=== PATIENT | female | born 1940 | race Caucasian/White ===

== ENCOUNTER 2017-10-23 11:00 | Outpatient (CLI) | payer MEDICARE | END 2017-10-23 11:01 | disposition home or self-care (01) | LOC: BICRAD 11:00 | PROVIDERS: ATTEND Podiatrist | DX: R60.0 Localized edema (principal); L53.9 Erythematous condition, unspecified; M85.871 Other specified disorders of bone density and structure, right ankle and foot ==

== ENCOUNTER 2018-04-19 13:35 | Outpatient (CLI) | payer MEDICARE | END 2018-04-19 13:36 | disposition home or self-care (01) | LOC: BICCT 13:35 | PROVIDERS: ATTEND Anesthesiology Pain Medicine | DX: M48.04 Spinal stenosis, thoracic region (principal); M48.062 Spinal stenosis, lumbar region with neurogenic claudication; M47.894 Other spondylosis, thoracic region; M43.9 Deforming dorsopathy, unspecified; M51.34 Other intervertebral disc degeneration, thoracic region; R91.1 Solitary pulmonary nodule; M47.896 Other spondylosis, lumbar region; M51.36 Other intervertebral disc degeneration, lumbar region; M41.9 Scoliosis, unspecified | CPT/HCPCS: 72110; 72128; 72131 ==

== ENCOUNTER 2018-10-16 09:12 | Outpatient (CLI) | payer MEDICARE, OTHER ==
--- NOTE | 2018-10-16 09:30 | RAD ---
TWO VIEWS CHEST: Comparison: 08-15-13 History: Dyspnea. FINDINGS: Two views of the chest shows an enlarged cardiomediastinal silhouette. Increased interstitial marking s are present. There is no evidence of consolidation, mass, or pleural effusion. Degenerative changes are seen in the spine. IMPRESSION: Cardiomegaly without evidence of acute cardiopulmonary disease. POS: [facility]
== END 2018-10-16 09:13 | disposition home or self-care (01) ==
LOC: RAD 09:12
PROVIDERS: ATTEND Internal Medicine Critical Care Medicine
DX: R06.00 Dyspnea, unspecified (principal); I51.7 Cardiomegaly
CPT/HCPCS: 71046

== ENCOUNTER 2019-04-15 12:46 | Outpatient (CLI) | payer MEDICARE ==
--- NOTE | 2019-04-15 13:22 | RAD ---
Exam: Right toes 3 views HISTORY: Second tarsal ulcer FINDINGS: Vascular calcifications. No fractures. There is a soft tissue ulcer along the dorsal aspect of the second digit. There is erosion involving the distal aspect of the proximal phalanx. IMPRESSION: Soft tissue ulcer involving the proximal dorsal aspect of the second digit. There is asso ciated underlying osteomyelitis involving the distal aspect of the proximal phalanx.
== END 2019-04-15 12:47 | disposition home or self-care (01) ==
LOC: BICRAD 12:46
PROVIDERS: ATTEND Podiatrist
DX: L97.519 Non-pressure chronic ulcer of other part of right foot with unspecified severity (principal); M86.9 Osteomyelitis, unspecified

== ENCOUNTER 2019-04-19 07:52 | Day surgery (SDC) | payer MEDICARE, OTHER ==
[2019-04-18 16:47] VITALS: BMI 26.6
[2019-04-19] MEDS ORDERED: ceFAZolin Sodium (SDC) 2 GM/100 ML BAG ONE (09:30)
[2019-04-19 09:41] LABS: #Basophils 0.1 thou/uL (0.0-0.2); #Eosinphils 0.3 thou/uL (0.0-0.7); #Lymphocytes 0.6 thou/uL (1.20-3.40); #Monocytes 1.2 thou/uL (0.11-0.59); #Neutrophils 7.6 thou/uL (1.40-6.50); %Basophils 0.6 % (0.0-1.0); %Eosinophils 2.6 % (0.0-10.0); %Lymphocytes 6.1 % (21.0-51.0); %Monocytes 12.2 % (0.0-10.0); %Neutrophils 78.4 % (42.0-75.0); Hemoglobin 13.4 g/dL (12.0-16.0); Mean Corpuscular HGB CONC 32.6 g/dL (32.0-36.0); Mean Corpuscular Hemoglobin 31.6 pg (27.0-31.0); Mean Platelet Volume 7.6 fL (7.4-10.4); Platelet Count 245 thou/uL (130-400); RBC Distribution Width 14.3 % (11.5-14.5); Red Blood Cell (RBC) Count 4.23 mill/uL (4.20-5.40); White Blood Cell (WBC) Count 9.6 thou/uL (4.8-10.8)
[2019-04-19 09:57] LABS: Anion Gap 20 mmol/L (10-20); BUN (Urea Nitrogen) 39 mg/dL (9.8-20.1); Calc. Creatinine Clearance 24 mL/min (70-130); Calcium 10.1 mg/dL (7.8-10.44); Carbon Dioxide 25 mmol/L (23-31); Chloride 102 mmol/L (98-107); Estimated GFR-MDRD 23; Glucose 104 mg/dL (83-110); Potassium 4.6 mmol/L (3.5-5.1); Sodium 142 mmol/L (136-145)
[2019-04-19] MEDS ORDERED: Fentanyl 100 MCG/2 ML VIAL ONE ×2 (10:15→10:49)
[2019-04-19] MEDS ORDERED: Lidocaine 2% PF 5 ML VIAL ONE (10:56)
[2019-04-19] MEDS ORDERED: Bupivacaine PF 0.5% 30 ML VIAL ONE (10:56)
[2019-04-19] MEDS ORDERED: Bacitracin Zinc Ointment 30 gm TUBE ONE (10:56)
[2019-04-19] MEDS ORDERED: Neomycin-Polymyxin 1 ML AMP ONE (10:57)
--- NOTE | 2019-04-19 16:30 | EKG ---
Test Reason : PREOP Blood Pressure : / mmHG Vent. Rate : 110 BPM Atrial Rate : 340 BPM P-R Int : 000 ms QRS Dur : 094 ms QT Int : 354 ms P-R-T Axes : 000 047 -77 degrees QTc Int : 479 ms Atrial fibrillation with rapid ventricular response Abnormal ECG No previous ECGs available Confirmed by DR. Florentino ALCANTAR MD ([id number]) on 04/19/2019 4:30:12 PM Referred By: TERRA Confirmed By:DR. Floretnino ALCANTAR MD
[2019-04-19] MEDS ORDERED: Bupivacaine HCl 0.5%/Epinephrine 1:200,000/PF 30 ml Vial ONE (16:57)
[2019-04-19] MEDS ORDERED: Esmolol 100 MG/10 ML VIAL ONE (17:11)
[2019-04-19] MEDS ORDERED: PROPOFOL 200 MG/20 ML VIAL ONE (17:11)
[2019-04-19] MEDS ORDERED: Ondansetron PF 4 MG/2 ML Vial ONE (17:11)
--- NOTE | 2019-04-22 13:07 | OP ---
DATE OF PROCEDURE: 04/19/2019 ASSISTANTS: None. FACILITY: [facility], [place]. PREOPERATIVE DIAGNOSIS: Osteomyelitis, right second toe. POSTOPERATIVE DIAGNOSIS: Osteomyelitis, right second toe. PROCEDURE PERFORMED: Amputation of right second toe. FLUIDS: None. ANESTHESIA: TIVA with local. ESTIMATED BLOOD LOSS: Less than 3 mL. DESCRIPTION OF PROCEDURE: The patient was brought to the OR and placed in the supine position. The right foot was prepped in the usual sterile manner. A tourniquet was not used. An Esmarch was not used. The patient's vascular flow to the right lower extremity was normal. Once the sedation had taken effect, approximately 10 mL of 2% plain lidocaine and 0.5% Marcaine were injected in an H-block proximal to the right second metatarsal head. A marking pen was then used to delineate a fishmouth shaped incision approximately at mid diaphysis of the proximal phalanx of the right second toe. A #10 blade was used for the initial incision. The incision was carried cleanly to bone; however, the extensors and flexors were identified, retracted, and transected. A sagittal saw was used to transect the proximal phalanx, mid shaft. The second toe was sent to Pathology for evaluation. The wound was then copiously lavaged with a solution. The edges of the wound were then reapproximated with 3-0 Prolene in a simple interrupted manner. The wound was dressed with fluffs, Kerlix, and an Earle wrap. The patient was given written postoperative instructions and a followup at this office in 1 week. The patient tolerated the procedure well. She left the OR with all vital signs stable and intact. Her infectious disease followups and antibiotic treatment will continue. Job ID: [id number]
== END 2019-04-19 12:44 | disposition home or self-care (01) ==
LOC: SDC 07:52
PROVIDERS: ATTEND Podiatrist
PROC: 0Y6R0Z1 Detachment at Right 2nd Toe, High, Open Approach (ICD-10-PCS; principal; 2019-04-19)
DX: M86.171 Other acute osteomyelitis, right ankle and foot (principal); L97.519 Non-pressure chronic ulcer of other part of right foot with unspecified severity; I13.0 Hypertensive heart and chronic kidney disease with heart failure and stage 1 through stage 4 chronic kidney disease, or unspecified chronic kidney disease; N18.4 Chronic kidney disease, stage 4 (severe); I50.9 Heart failure, unspecified; D63.1 Anemia in chronic kidney disease; M10.9 Gout, unspecified; J44.9 Chronic obstructive pulmonary disease, unspecified; G62.9 Polyneuropathy, unspecified; M19.90 Unspecified osteoarthritis, unspecified site; Z79.2 Long term (current) use of antibiotics; Z79.82 Long term (current) use of aspirin; Z79.899 Other long term (current) drug therapy; Z88.1 Allergy status to other antibiotic agents; Z88.8 Allergy status to other drugs, medicaments and biological substances
CPT/HCPCS: 80048; 85025; 93005; 93010; J0670; J0690; J2001; J2405; J2704; J3010; J3370; S0020

== ENCOUNTER 2019-09-25 08:22 | Outpatient (CLI) | payer MEDICARE, OTHER ==
--- NOTE | 2019-10-04 10:04 | CT ---
CT Abdomen Pelvis W Con: 10/04/2019 12:00 AM CLINICAL INFORMATION: Dysphagia and weight loss. Irritable bowel syndrome. COMPARISON: None. TECHNIQUE: Multiple contiguous axial images were obtained and a CT of the abdomen and pelvis with IV contrast. Oral contrast was administered. Coronal and sagittal reformats were performed. FINDINGS: Lower Chest: Calcified granulomas in the right lung base. Abdomen: Liver: Scattered calcified granulomas Bile Ducts: Normal caliber. Gallbladder: No calcified gallstones. Normal caliber wall. Pancreas: within normal limits. Spleen: Calcified granuloma Adrenals: within normal limits. Kidneys: Nonspecific 1.0 cm hypodensity in the left kidney. The left kidney is small and atrophic. Pelvis: Reproductive Organs: No pelvic masses. Ureters: within normal limits. Bladder: within normal limits. Peritoneum: No ascites or free air, no fluid collection. Bowel: Normal caliber. Mesentery and Retroperitoneum: No enlarged mesenteric or retroperitoneal lymph nodes. Vessels: Atherosclerotic calcifications. Abdominal Wall: within normal limits. Bones: Degenerative changes in the spine. IMPRESSION: No evidence of acute intraabdominal or pelvic abnormality.
[2019-10-04] MEDS ORDERED: Iopamidol-370 76% 500 ML 1 ML ONE (10:38)
== END 2019-09-25 08:23 | disposition home or self-care (01) ==
LOC: BICCT 08:22
PROVIDERS: ATTEND Internal Medicine Gastroenterology
DX: K58.0 Irritable bowel syndrome with diarrhea (principal); R13.10 Dysphagia, unspecified; R63.4 Abnormal weight loss; K31.1 Adult hypertrophic pyloric stenosis
CPT/HCPCS: 74177; 82565

== ENCOUNTER 2019-11-11 10:27 | Outpatient (CLI) | payer MEDICARE, OTHER ==
--- NOTE | 2019-11-11 10:52 | RAD ---
EXAM: XR Foot Rt 3 View STANDARD PROVIDED CLINICAL HISTORY: Ulcer FINDINGS: Age-indeterminate displaced fracture involving the great toe distal phalanx. Somewhat indistinct appe arance to the fracture margins may reflect a subacute process. Alignment appears anatomic. Joint spaces appear preserved. Postoperative absence of most of second digit. Vascular calcifications. IMPRESSION: Age-indeterminate displaced fracture involving great toe distal phalanx.
== END 2019-11-11 10:28 | disposition home or self-care (01) ==
LOC: BICRAD 10:27
PROVIDERS: ATTEND Podiatrist
DX: L97.519 Non-pressure chronic ulcer of other part of right foot with unspecified severity (principal)

== ENCOUNTER 2020-01-06 10:16 | Outpatient (CLI) | payer MEDICARE, OTHER ==
--- NOTE | 2020-01-06 12:51 | RAD ---
RIGHT FOOT RADIOGRAPHS 3 VIEWS: DATE: 01/06/2020. PROVIDED CLINICAL HISTORY: Pressure ulcer. FINDINGS: Comparison 11/11/2019. There is no evidence for an acute fracture or other acute osseous abnormality. Deformity of the great toe and presumed postoperative change involving the 2nd toe redemonstrated, s table. Extensive regional vascular calcifications. Alignment appears unchanged. Joint spaces appea r preserved. IMPRESSION: No radiographic evidence for an acute osseous abnormality. POS: [facility]
== END 2020-01-06 10:17 | disposition home or self-care (01) ==
LOC: BICRAD 10:16
PROVIDERS: ATTEND Podiatrist
DX: L89.890 Pressure ulcer of other site, unstageable (principal)

== ENCOUNTER 2020-02-25 10:52 | Inpatient (IN) | payer MEDICARE, OTHER ==
[2020-02-25] MEDS ORDERED: Azithromycin 500 MG VIAL ONE (11:09)
[2020-02-25] MEDS ORDERED: Magnesium 2 GM/50 ML BAG (IN WATER) ONE (11:09)
[2020-02-25] MEDS ORDERED: Sodium Chloride 0.9% 100 ML ONE (11:09)
[2020-02-25] MEDS ORDERED: Dexamethasone 4 mg/ml Vial ONE (11:09)
[2020-02-25] MEDS ORDERED: cefTRIAXone\\ROCEPHIN 2 GM VIAL ONE (11:09)
[2020-02-25 11:15] LABS: #Lymphocytes 0.5 thou/uL (1.20-3.40); #Monocytes 0.6 thou/uL (0.11-0.59); #Neutrophils 9.1 thou/uL (1.40-6.50); %Basophils 0.5 % (0.0-1.0); %Eosinophils 0.2 % (0.0-10.0); %Lymphocytes 5.1 % (21.0-51.0); %Monocytes 5.9 % (0.0-10.0); %Neutrophils 88.4 % (42.0-75.0); Mean Corpuscular HGB CONC 30.8 g/dL (32.0-36.0); Mean Corpuscular Hemoglobin 28.1 pg (27.0-31.0); Mean Corpuscular Volume 91.3 fL (78.0-98.0); Mean Platelet Volume 9.3 fL (7.4-10.4); Platelet Count 183 thou/uL (130-400); RBC Distribution Width 17.5 % (11.5-14.5); Red Blood Cell (RBC) Count 4.28 mill/uL (4.20-5.40); White Blood Cell (WBC) Count 10.3 thou/uL (4.8-10.8)
[2020-02-25] MEDS ORDERED: Digoxin 0.5 MG/2 ML AMP ONE (11:26)
--- NOTE | 2020-02-25 11:35 | RAD ---
EXAM: Single view of the chest HISTORY: Covid positive with shortness of breath COMPARISON: 04/08/2015 FINDINGS: Single view of the chest shows an enlarged but stable cardiomediastinal silhouette. Diffus e increased interstitial markings are likely chronic. Atherosclerotic calcifications are seen in the aorta. No obvious superimposed infiltrates are appreciated. There is no evidence of consolidatio n, mass, or pleural effusion. Degenerative changes are seen in the spine. IMPRESSION: Chronic interstitial lung disease without obvious acute infiltrate. Evaluation is limited secondary to the chronic lung disease.
[2020-02-25 11:47] LABS: ALT (SGPT) 29 U/L (8-55); AST (SGOT) 49 U/L (5-34); Albumin 3.2 g/dL (3.4-4.8); Alkaline Phosphatase 120 U/L (40-110); Anion Gap 19 mmol/L (10-20); BUN (Urea Nitrogen) 69 mg/dL (9.8-20.1); Bilirubin, Total 0.6 mg/dL (0.2-1.2); CK (CPK) 11 U/L (29-168); Calc. Creatinine Clearance 0 mL/min (70-130); Calcium 8.9 mg/dL (7.8-10.44); Carbon Dioxide 26 mmol/L (23-31); Chloride 101 mmol/L (98-107); Estimated GFR-MDRD 22; Globulin 3.1 g/dL (2.4-3.5); Glucose 150 mg/dL (83-110); Lipase 21 U/L (8-78); Potassium 4.6 mmol/L (3.5-5.1); Protein, Total 6.3 g/dL (6.0-8.3); Sodium 141 mmol/L (136-145)
[2020-02-25 11:59] LABS: CKMB 0.5 ng/mL (0-6.6)
[2020-02-25 12:04] LABS: Actual Bicarbonate (HCO3a) 25.1 mEq/L (22-28); Analyzer IN Cardio ER; Base Excess (BEa) 1.9 mEq/L (-2.0 to +3.0); CO2 Tension 34.7 mmHg (35.0-45.0); Calcium, Ionized (arterial) 1.07 mmol/L (1.12-1.30); Carboxyhemoglobin (COHb) 0.2 gm% (0.0-3.0); Hemoglobin (Hb) 11.3 g/dL (12.0-16.0); O2 Tension (PaO2), arterial 64.1 mmHg (> 60.0); Potassium - ABG Lab 3.97 mmol/L (3.70-5.30); pH, Arterial 7.48 (7.35-7.45)
[2020-02-25] MEDS ORDERED: Norepinephrine 8 MG/0.9% NS 250 ML ONE (12:05)
[2020-02-25 12:07] LABS: ALV-art Gradient 249.025 (0-20); Puncture Site RBRACH
[2020-02-25] MEDS ORDERED: Enoxaparin Sodium 60 MG/0.6 ML SYRINGE ONE (12:58)
[2020-02-25] MEDS ORDERED: Aspirin Chewable 81 MG TAB ONE (12:58)
[2020-02-25 13:31] LABS: Bilirubin Negative (Negative); Blood, Urine Negative (Negative); Clarity Clear (Clear); Glucose, Urine (Dipstick) Normal (Negative); Leukocyte Negative Leu/uL (Negative); Nitrite Negative (Negative); Protein, Urine (Dipstick) Negative (Neg-Trace); Urobilinogen Normal mg/dL (Less than 2)
[2020-02-25] MEDS ORDERED: Bisacodyl 5 MG TAB PO PRN (14:04)
[2020-02-25] MEDS ORDERED: Senokot S 8.6-50 MG TAB PO PRN (14:04)
[2020-02-25 14:38] LABS: Lactic Acid 1.4 mmol/L (0.5-2.2)
[2020-02-25 14:41] LABS: Troponin I 0.127 ng/mL (< 0.028)
--- NOTE | 2020-02-25 18:02 | HP ---
CHIEF COMPLAINT: Cough, shortness of breath, and COVID positive. HISTORY OF PRESENT ILLNESS: An 79-year-old female admitted for potential CHF exacerbation. However, she was ruled in positive for COVID at primary care physician's office. Initially, she had a low blood pressure with systolic of 75 and heart rate of AFib with RVR with pulse of 140. Due to her low blood pressure, magnesium and digoxin given. Pulse seems to be improved. She was started on Levophed for persistent low blood pressure. Her lactate also was high at 4.6, pCO2 was 35, and she was actually saturating 70% in the room and high-flow oxygen seems to help. Her D-dimer is elevated at 1.27. Also, she had abnormal troponin. During my exam, the patient is not able to give me much information. She is hard of hearing. She says she has some wound in the sacral area, want to be looked at. She is also coughing quite a bit during my exam. REVIEW OF SYSTEMS: Complete review of systems not obtainable due to her clinical condition of continuous cough and COVID being positive. ALLERGIES: SHE HAS NO KNOWN DRUG ALLERGIES. PAST MEDICAL HISTORY: 1. Hypothyroidism. 2. Hypertension. SOCIAL HISTORY: Not obtained. FAMILY HISTORY: Noncontributory. PHYSICAL EXAMINATION: VITAL SIGNS: She is afebrile. Monitor shows systolic blood pressure improved to 110. CARDIAC: She is tachycardic currently. Irregular rhythm. LUNGS: With posterior auscultation, she has moderate aeration in both lung zones. Crackles and rales in the lower lung bases. ABDOMEN: Soft, nontender, and nondistended. Bowel sounds are positive. EXTREMITIES: With 1+ pitting edema all the way from ankles to the legs. I did not appreciate any rash over the torso or the extremities. LABORATORY DATA: Her CBC in the normal range. BMP: Creatinine of 2.14. AST 49. Creatine kinase 11, troponin 0.153, and BNP 2521. D-dimer 1.27. UA is benign. Chest x-ray shows chronic interstitial lung disease without obvious acute infiltrate. Evaluation limited secondary to chronic lung disease. IMPRESSION AND PLAN: This is an 79-year-old female, presenting with the following. 1. Sepsis secondary to COVID pneumonia, sepsis with severe hypotension, requiring Levophed. 2. Congestive heart failure exacerbation. 3. Chronic obstructive pulmonary disease exacerbation. 4. Hypoxia, acute respiratory failure, requiring high-flow oxygen. 5. Abnormal troponin, type 2 metabolic mismatch/demand ischemia due to sepsis secondary to COVID pneumonia. 6. Acute kidney injury, probably reflective of sepsis and acute distress. 7. Probable pressure ulcer in the sacral area. The patient will be admitted in the unit. We will wean off her vasopressors as her blood pressure improves. We will hold the diuresis until she is hemodynamically more stable. 8. Atrial fibrillation with rapid ventricular response. Had to be caution with giving her any rate-controlling agent as she is still hypotensive. The patient also needs to be anticoagulated given her atrial fibrillation. She does not appear to be on any anticoagulants at home. We need to address that. 9. Regarding COVID, we will start her on low-dose Decadron, and since her creatinine 2.14 with a GFR of 22, I will put her on heparin b.i.d. and stop Lovenox at this time. 10. We will get serial LFT, CRP, as well as D-dimer level to monitor the progression of her COV ID. ID consult with Dr. Bedolla. Gentle IV fluid with caution with underlying history of congestive heart failure. For COPD exacerbation, she would be on a high-flow oxygen along with DuoNeb breathing treatments as needed. 11. Routine nursing wound care. If necessary, will consult wound care team. 12. Full code. Job ID: [id number] [facility]
[2020-02-25] MEDS ORDERED: Ondansetron PF 4 MG/2 ML Vial IVP PRN (18:51)
[2020-02-25] MEDS ORDERED: Ondansetron ODT 4 MG TAB SL PRN (18:51)
[2020-02-25] MEDS ORDERED: Sodium Chloride 0.9% 1,000 ML IV SCH (18:51)
[2020-02-25] MEDS ORDERED: Norepinephrine 8 MG/0.9% NS 250 ML IVPB SCH (18:51)
[2020-02-25] MEDS ORDERED: Digoxin 0.5 MG/2 ML AMP SLOW IVP SCH (19:00)
[2020-02-25 19:22] LABS: Troponin I 0.133 ng/mL (< 0.028)
[2020-02-25] MEDS: Heparin 5,000 UNITS/ML VIAL SC SCH (21:01)
[2020-02-26 03:06] LABS: #Lymphocytes 0.3 thou/uL (1.20-3.40); #Monocytes 0.5 thou/uL (0.11-0.59); #Neutrophils 6.3 thou/uL (1.40-6.50); %Lymphocytes 4.7 % (21.0-51.0); %Monocytes 6.6 % (0.0-10.0); %Neutrophils 88.7 % (42.0-75.0); Hemoglobin 11.4 g/dL (12.0-16.0); Mean Corpuscular HGB CONC 32.2 g/dL (32.0-36.0); Mean Corpuscular Hemoglobin 29.2 pg (27.0-31.0); Mean Corpuscular Volume 90.6 fL (78.0-98.0); Mean Platelet Volume 9.1 fL (7.4-10.4); Platelet Count 129 thou/uL (130-400); RBC Distribution Width 17.2 % (11.5-14.5); White Blood Cell (WBC) Count 7.1 thou/uL (4.8-10.8)
[2020-02-26 03:30] LABS: ALT (SGPT) 31 U/L (8-55); AST (SGOT) 55 U/L (5-34); Albumin 2.6 g/dL (3.4-4.8); Alkaline Phosphatase 105 U/L (40-110); Bilirubin, Direct 0.4 mg/dL (0.1-0.3); Bilirubin, Total 0.6 mg/dL (0.2-1.2); Protein, Total 5.4 g/dL (6.0-8.3)
[2020-02-26 03:31] LABS: ALT (SGPT) 30 U/L (8-55); AST (SGOT) 54 U/L (5-34); Albumin 2.6 g/dL (3.4-4.8); Alkaline Phosphatase 104 U/L (40-110); Anion Gap 15 mmol/L (10-20); BUN (Urea Nitrogen) 65 mg/dL (9.8-20.1); Bilirubin, Total 0.5 mg/dL (0.2-1.2); Calc. Creatinine Clearance 22 mL/min (70-130); Calcium 8.2 mg/dL (7.8-10.44); Carbon Dioxide 27 mmol/L (23-31); Chloride 107 mmol/L (98-107); Estimated GFR-MDRD 28; Globulin 2.7 g/dL (2.4-3.5); Glucose 163 mg/dL (83-110); Potassium 3.9 mmol/L (3.5-5.1); Protein, Total 5.3 g/dL (6.0-8.3); Sodium 145 mmol/L (136-145)
[2020-02-26] MEDS: Levothyroxine Sodium 75 MCG TAB PO SCH (05:36)
[2020-02-26] MEDS: Aspirin 81 mg Enteric Coated Tablet PO SCH (07:56)
[2020-02-26] MEDS: Dexamethasone 4 mg/ml Vial SLOW IVP SCH (07:57)
[2020-02-26] MEDS: Heparin 5,000 UNITS/ML VIAL SC SCH ×2 (07:57→21:09)
[2020-02-26] MEDS: Calcitriol 0.25 MCG CAP PO SCH (07:57)
[2020-02-26] MEDS: Ergocalciferol 1.25 MG(50,000 UNITS) CAP PO SCH (07:58)
[2020-02-26] MEDS ORDERED: Non-Formulary Item 1 EACH (Umeclidinium Brm/Vilanterol Tr [Anoro Ellipta] 1 INH) IH SCH (09:00)
--- NOTE | 2020-02-26 09:55 | CON ---
DATE OF CONSULTATION: HISTORY OF PRESENT ILLNESS: Kareen Machuca is an 79-year-old female, who was brought into the hospital with hypotension, hypoxemia, coronavirus positive on 02/19. She sees Dr. Valdez, long list of medication. She otherwise denies any chills or sweats. She was hypotensive for a brief period of time. PAST SURGICAL HISTORY: Amputation of the toe. PAST MEDICAL HISTORY: COPD, hypertension, CHF apparently. HOME MEDICATIONS: Include: 1. Anoro. 2. Ranitidine. 3. Synthroid 75. 4. Lasix. 5. Cipro. 6. Tylenol. 7. Coreg 25 b.i.d. 8. She is presently getting Decadron 6, Synthroid. ALLERGIES: NONE. REVIEW OF SYSTEMS: 10 points negative. PHYSICAL EXAMINATION: VITAL SIGNS: She is on high-flow, sats 90, pulse 106, blood pressure . GENERAL: Awake, alert, responsive. CHEST: No wheezing. No crackles. CARDIAC: Normal S1, S2. No gallops. ABDOMEN: Soft. LABORATORY DATA: White count 7000, H and H 11 and 35, platelet count is normal. Creatinine is 1.7, BUN is 65. Serial troponins elevated. BNP was elevated at 2521. IMPRESSION: Congestive heart failure, chronic obstructive pulmonary disease, azotemia, coronavirus positive. PLAN: Add doxycycline. Input from Cardiology. We will notify Dr. Valdez. Continue neb treatments, supportive care. Consultation note, 70 minutes, 50% direct patient care. Job ID: [id number]
[2020-02-26] MEDS: Doxycycline 100 MG CAP PO SCH ×2 (10:43→21:09)
--- NOTE | 2020-02-26 15:41 | PDOC.HOSPP ---
- Subjective Encounter Date: 02/26/20 Encounter Time: 12:40 Subjective: pt seen, stable asandting 90% w.. Fio2 of 40. Hr controlled, off levophed which started y'day in the ER, HR controlled, not on drips or vasopressors. all markers were COVID were high - crp, ferritin, AST and Cr, and Cr trending down. - Objective Vital Signs & Weight: Vital Signs (12 hours) Temp Pulse Ox 02/26/20 15:00 98.4 F 02/26/20 11:00 98.2 F 02/26/20 10:54 94 L 02/26/20 08:37 90 L 02/26/20 08:00 96 02/26/20 07:00 98.1 F Weight Weight 124 lb 12.506 oz Most Recent Monitor Data Heart Rate from ECG 113 NIBP 127/80 NIBP BP-Mean 95 Respiration from ECG 26 SpO2 88 I&O: 02/25/20 02/26/20 02/27/20 06:59 06:59 06:59 Intake Total 759.8 1140 Output Total 740 660 Balance 19.8 480 Result Diagrams: 02/26/20 02:50 02/26/20 02:50 Hospitalist ROS - Medication Medications: Active Medications Generic Name Dose Route Start Last Admin Trade Name Freq PRN Reason Stop Dose Admin Aspirin 81 mg 02/26/20 09:00 02/26/20 07:56 Ecotrin PO 81 mg DAILY EDGARDO Administration Calcitriol 0.25 mcg 02/26/20 09:00 02/26/20 07:57 Rocaltrol PO 0.25 mcg DAILY EDGARDO Administration Dexamethasone 6 mg 02/26/20 09:00 02/26/20 07:57 Decadron SLOW IVP 6 mg DAILY EDGARDO Administration Doxycycline Hyclate 100 mg 02/26/20 09:00 02/26/20 10:43 Vibramycin PO 03/04/20 09:01 100 mg BID EDGARDO Administration Ergocalciferol 1.25 mg 02/26/20 09:00 02/26/20 07:58 Drisdol PO 1.25 mg DAILY EDGARDO Administration Heparin Sodium (Porcine) 5,000 units 02/25/20 21:00 02/26/20 07:57 Heparin SC 5,000 units BID EDGARDO Administration Levothyroxine Sodium 75 mcg 02/26/20 06:00 02/26/20 05:36 Synthroid PO 75 mcg 0600 EDGARDO Administration Sodium Chloride 10 ml 02/25/20 21:00 02/26/20 07:58 Flush - Normal Saline IVF 10 ml Q12HR EDGARDO Administration - Exam General Appearance: ill appearing Eye: PERRL Neck: supple Heart: irregular Respiratory: rales Gastrointestinal: normal bowel sounds Neurological: no focal deficits Psychiatric: somnolent, lethargic Hosp A/P - Plan COVID sepsis COVID pneumonia--decadron Hypox res failure requriing high flow O2 Hyptoension - resolved --bl luiza neg so far -- not on abx Afib - currently not on rate control agent Hr controlled, off levophed which started y'day in the ER, HR controlled, not on drips or vasopressors. all markers were COVID were high - crp, ferritin, AST and Cr, and Cr trending down. TALISHA --Cr improving Full code.
[2020-02-26] MEDS: Albuterol 200 PUFF (6.7GM INHALER) INH SCH (19:24)
--- NOTE | 2020-02-26 21:38 | CON ---
DATE OF CONSULTATION: 02/26/2020 REASON FOR CONSULTATION: COVID pneumonia. HISTORY OF PRESENT ILLNESS: An 79-year-old with history of COPD, CHF, and CKD, who acquired COVID infection from one of her daughters. She was diagnosed about 10 days ago. Symptoms started about 11 days ago. She was managed at home initially, but now she deteriorated, became more hypoxic, was admitted. BP on arrival 81/55, pulse 148, respirations 32, and O2 saturation 75. She was placed on a nonrebreather, oxygen supplementation. She was in severe distress on arrival. There was wheezing in her lungs sounds. The abdomen examination and neuro examination were not remarkable. Other findings included a white cell count 10.3, hemoglobin 12, and platelets 183 with 88% neutrophils. D-dimer is 1.27. A pH of 7.48, pCO2 of 34, and pO2 of 64. Creatinine 2.14, lactic acid 4.6, and albumin 3.2. Currently, Ms. Machuca is in the ICU with high-flow nasal cannula O2 supplementation. She is feeling much more comfortable. She is able to speak in full sentences. Denies any headaches. The dyspnea has improved. No chest pain. No abdominal pain or diarrhea. Voiding with an indwelling for Alexander catheter. There is a peripheral IV access. PAST MEDICAL HISTORY: COPD, CHF, CKD, hyperlipidemia, hypertension, and amputation of the right second toe. She has a chronic ulcer at the lateral aspect of the right fifth toe. SOCIAL HISTORY: Former smoker. Lives in a home with daughter. ALLERGIES: NONE. CURRENT MEDICATIONS: 1. Proventil. 2. Ecotrin. 3. Dulcolax. 4. Rocaltrol. 5. Decadron. 6. Vibramycin. 7. Drisdol. 8. Heparin. 9. Synthroid. FAMILY HISTORY: Noncontributory except for a daughter with the COVID. PHYSICAL EXAMINATION: VITAL SIGNS: She has been afebrile since admission. BP 120/60, heart rate 112, respirations 28, and the latest O2 saturation was 94. GENERAL: Appears in no distress. SKIN: Shows a stage 2 presacral ulcer, also much erythema, it is just red tissue at the base. The right foot lateral fifth MPJ skin has a small ulcerated area, which appears superficial. No lymphadenopathy. HEENT: Ocular movements conjugate. Oral cavity somewhat dry. NECK: Supple. No jugular vein distention. LUNGS: With fairly clear breath sounds. HEART: S1 and S2. Regular rate. No S3 or S4. ABDOMEN: Soft, not distended or tender. No ascites. No bladder distention. EXTREMITIES: No joint inflammatory activity. She moves extremities equally. No edema. NEUROLOGIC: Awake, alert, and oriented. Follows commands. LABORATORY DATA: Followup labs; white cell count 7.1, hemoglobin 11.4, platelets 129, and 88% neutrophils. D-dimer 1.49. Chest x-ray with interstitial lung disease. No obvious infiltrate. ASSESSMENT: Chronic obstructive pulmonary disease, interstitial lung disease, COVID infection, and worsening hypoxemia. DISCUSSION: The patient has been started on Decadron and heparin adjusted for renal function and unclear what the component of her deterioration is from her underlying lung disease, but certainly it does not help having this viral infection on top of that. She is at her eleventh day of illness and still has quite a few days left from this. Hopefully, she will not deteriorate and not require intubation. Job ID: [id number]
[2020-02-26] MEDS: Acetaminophen 325 MG TAB PO PRN (23:58)
[2020-02-27] MEDS ORDERED: Digoxin 0.125 MG TAB PO SCH (01:00)
[2020-02-27] MEDS: Levothyroxine Sodium 75 MCG TAB PO SCH (05:46)
[2020-02-27] MEDS: Albuterol 200 PUFF (6.7GM INHALER) INH SCH ×4 (07:00→19:40)
[2020-02-27] MEDS: Doxycycline 100 MG CAP PO SCH ×2 (09:05→19:27)
[2020-02-27] MEDS: Dexamethasone 4 mg/ml Vial SLOW IVP SCH (09:06)
[2020-02-27] MEDS: Aspirin 81 mg Enteric Coated Tablet PO SCH (09:06)
[2020-02-27] MEDS: Heparin 5,000 UNITS/ML VIAL SC SCH ×2 (09:06→19:27)
[2020-02-27] MEDS: Calcitriol 0.25 MCG CAP PO SCH (09:06)
[2020-02-27] MEDS: Ergocalciferol 1.25 MG(50,000 UNITS) CAP PO SCH (09:06)
[2020-02-27] MEDS: Diphenoxylate HCl/Atropine Tablet PO PRN ×3 (10:59→21:33)
[2020-02-27] MEDS: traMADol HCl 50 MG TAB PO PRN (10:59)
--- NOTE | 2020-02-27 14:00 | PRG ---
DATE OF SERVICE: 02/27/2020 SUBJECTIVE: Ms. Machuca has no change. She is still talking a mile a minute. She is on her cellphone all day yesterday. OBJECTIVE: VITAL SIGNS: Heart rate in the 90s, blood pressure 133/84, and respiratory rates in the teens. LUNGS: Unchanged. HEART: Unchanged. ABDOMEN: Unchanged. LABORATORY DATA: White count 7.1, hemoglobin 11.4, and platelets 129. Sodium 145, potassium 3.9, chloride 107, bicarb 27, BUN 65, and creatinine 1.77, which is down from 2.14. IMPRESSION: 1. COVID pneumonia. 2. Intravascular volume depletion. 3. Hypoalbuminemia. 4. Stage III decubitus on presentation. 5. Mild elevation of liver enzymes secondary COVID. She is about a week into this, so really it will not benefit in theory from convalescent plasma or any other medications. Supportive care, oxygen therapy, and trying to get her out of bed is the best option. The nurses tell me that she has a decubitus, it looks like she has been lying on her sacrum for quite some time. I believe she probably tends to spend most of her time in bed when she is not in the hospital. We will continue supportive care. She is probably stable to move out of the critical care unit if the bed becomes needed in the ICU. Job ID: [id number] [facility]
--- NOTE | 2020-02-27 17:09 | PDOC.HOSPP ---
- Subjective Encounter Date: 02/27/20 Encounter Time: 11:20 Subjective: pt's care d/w RN. she is stable to be transferred to obs unit [COVID +ve] - Objective Vital Signs & Weight: Vital Signs (12 hours) Temp Pulse Ox 02/27/20 15:42 92 L 02/27/20 15:00 98.5 F 02/27/20 12:00 98.7 F 02/27/20 08:00 98.8 F 93 L Weight Admit Weight 125 lb Weight 125 lb Most Recent Monitor Data Heart Rate from ECG 112 NIBP 125/76 NIBP BP-Mean 92 Respiration from ECG 20 SpO2 87 I&O: 02/26/20 02/27/20 02/28/20 06:59 06:59 06:59 Intake Total 759.8 3446 840 Output Total 740 2200 510 Balance 19.8 1246 330 Result Diagrams: 02/26/20 02:50 02/26/20 02:50 Hospitalist ROS - Medication Medications: Active Medications Generic Name Dose Route Start Last Admin Trade Name Freq PRN Reason Stop Dose Admin Acetaminophen 650 mg 02/25/20 14:04 02/26/20 23:58 Tylenol PO 650 mg Q4H PRN Administration Headache/Fever/Mild Pain (1-3) Albuterol Sulfate 2 puff 02/26/20 19:00 02/27/20 14:19 Proventil Hfa INH 2 puff [id number] EDGARDO Administration Aspirin 81 mg 02/26/20 09:00 02/27/20 09:06 Ecotrin PO 81 mg DAILY EDGARDO Administration Calcitriol 0.25 mcg 02/26/20 09:00 02/27/20 09:06 Rocaltrol PO 0.25 mcg DAILY EDGARDO Administration Dexamethasone 6 mg 02/26/20 09:00 02/27/20 09:06 Decadron SLOW IVP 6 mg DAILY EDGARDO Administration Diphenoxylate HCl/Atropine 1 tab 02/27/20 10:43 02/27/20 10:59 Lomotil PO 1 tab QIDPRN PRN Administration Diarrhea/Loose Stools Doxycycline Hyclate 100 mg 02/26/20 09:00 02/27/20 09:05 Vibramycin PO 03/04/20 09:01 100 mg BID EDGARDO Administration Ergocalciferol 1.25 mg 02/26/20 09:00 02/27/20 09:06 Drisdol PO 1.25 mg DAILY EDGARDO Administration Heparin Sodium (Porcine) 5,000 units 02/25/20 21:00 02/27/20 09:06 Heparin SC 5,000 units BID EDGARDO Administration Levothyroxine Sodium 75 mcg 02/26/20 06:00 02/27/20 05:46 Synthroid PO 75 mcg 0600 EDGARDO Administration Sodium Chloride 10 ml 02/25/20 21:00 02/27/20 09:06 Flush - Normal Saline IVF 10 ml Q12HR EDGARDO Administration Tramadol HCl 50 mg 02/27/20 10:42 02/27/20 10:59 Ultram PO 50 mg Q6H PRN Administration PAIN 4-6 - Exam General Appearance: NAD, awake alert, ill appearing Eye: PERRL ENT: normocephalic atraumatic Psychiatric: A&O x 3 Hosp A/P - Plan COVID sepsis COVID pneumonia--decadron Hypox res failure requriing high flow O2 Hyptoension - resolved --bl luiza neg so far -- not on abx Afib - currently not on rate control agent Hr controlled, off levophed which started y'day in the ER, HR controlled, not on drips or vasopressors. all markers were COVID were high - crp, ferritin, AST and Cr, and Cr trending down. TALISHA --Cr improving stage 3 pressure ulcer -POA - routine nursing care Full code.
[2020-02-27] MEDS: Mometasone 200 MCG/Formoterol 5 MCG 120 PUFF INHALER INH SCH (19:40)
[2020-02-28] MEDS: Levothyroxine Sodium 75 MCG TAB PO SCH (06:16)
[2020-02-28] MEDS: Mometasone 200 MCG/Formoterol 5 MCG 120 PUFF INHALER INH SCH ×2 (06:17→19:25)
[2020-02-28] MEDS: Albuterol 200 PUFF (6.7GM INHALER) INH SCH ×4 (06:17→19:11)
[2020-02-28] MEDS: Aspirin 81 mg Enteric Coated Tablet PO SCH (08:41)
[2020-02-28] MEDS: Ergocalciferol 1.25 MG(50,000 UNITS) CAP PO SCH (08:42)
[2020-02-28] MEDS: Doxycycline 100 MG CAP PO SCH ×2 (08:42→19:24)
[2020-02-28] MEDS: Calcitriol 0.25 MCG CAP PO SCH (08:42)
[2020-02-28] MEDS: Heparin 5,000 UNITS/ML VIAL SC SCH ×2 (08:42→19:24)
[2020-02-28] MEDS: methylPREDNISolone Sod Succ/PF 125 MG/2 ML VIAL IVP SCH (08:44)
[2020-02-28] MEDS ORDERED: methylPREDNISolone Sod Succ 40 MG VIAL IVP SCH ×2 (09:00)
--- NOTE | 2020-02-28 12:47 | PDOC.HOSPP ---
- Subjective Encounter Date: 02/28/20 Encounter Time: 11:20 Subjective: transferred from the unit, doing well on the floor. still on high flow O2 -- 87 % at fio2 of 54. feels ok, d-dimer high, -- no repeat markers done. will get them. - Objective Vital Signs & Weight: Vital Signs (12 hours) Temp Pulse Resp BP BP Pulse Ox 02/28/20 12:16 99.9 F H 110 H 22 H 119/72 87 L 02/28/20 09:00 99 F 99 20 141/84 H 94 L 02/28/20 03:52 98.5 F 89 15 147/75 H 92 L Weight Admit Weight 125 lb Weight 126 lb 14.4 oz Most Recent Monitor Data Heart Rate from ECG 103 NIBP 130/74 NIBP BP-Mean 92 Respiration from ECG 11 SpO2 91 I&O: 02/27/20 02/28/20 02/29/20 06:59 06:59 06:59 Intake Total 3446 1160 360 Output Total 2200 1535 Balance 1246 -375 360 Result Diagrams: 02/26/20 02:50 02/26/20 02:50 Hospitalist ROS - Medication Medications: Active Medications Generic Name Dose Route Start Last Admin Trade Name Freq PRN Reason Stop Dose Admin Acetaminophen 650 mg 02/25/20 14:04 02/26/20 23:58 Tylenol PO 650 mg Q4H PRN Administration Headache/Fever/Mild Pain (1-3) Albuterol Sulfate 2 puff 02/26/20 19:00 02/28/20 06:17 Proventil Hfa INH 2 puff [id number] EDGARDO Administration Aspirin 81 mg 02/26/20 09:00 02/28/20 08:41 Ecotrin PO 81 mg DAILY EDGARDO Administration Calcitriol 0.25 mcg 02/26/20 09:00 02/28/20 08:42 Rocaltrol PO 0.25 mcg DAILY EDGARDO Administration Diphenoxylate HCl/Atropine 1 tab 02/27/20 10:43 02/27/20 21:33 Lomotil PO 1 tab QIDPRN PRN Administration Diarrhea/Loose Stools Doxycycline Hyclate 100 mg 02/26/20 09:00 02/28/20 08:42 Vibramycin PO 03/04/20 09:01 100 mg BID EDGARDO Administration Ergocalciferol 1.25 mg 02/26/20 09:00 02/28/20 08:42 Drisdol PO 1.25 mg DAILY EDGARDO Administration Heparin Sodium (Porcine) 5,000 units 02/25/20 21:00 02/28/20 08:42 Heparin SC 5,000 units BID EDGARDO Administration Levothyroxine Sodium 75 mcg 02/26/20 06:00 02/28/20 06:16 Synthroid PO 75 mcg 0600 EDGARDO Administration Methylprednisolone Sodium Succinate 60 mg 02/28/20 09:00 02/28/20 08:44 Solu-Medrol IVP 60 mg DAILY EDGARDO Administration Mometasone Furoate/Formoterol Fumar 2 puff 02/27/20 18:30 02/28/20 06:17 Dulera 200 Mcg/5 Mcg Inhaler INH 2 puff BID-RT EDGARDO Administration Sodium Chloride 10 ml 02/25/20 21:00 02/28/20 08:44 Flush - Normal Saline IVF 10 ml Q12HR EDGARDO Administration Tramadol HCl 50 mg 02/27/20 10:42 02/27/20 10:59 Ultram PO 50 mg Q6H PRN Administration PAIN 4-6 - Exam General Appearance: NAD, awake alert Eye: PERRL ENT: normocephalic atraumatic Neurological: no focal deficits Psychiatric: normal affect, normal behavior, A&O x 3 Hosp A/P - Plan COVID sepsis COVID pneumonia--decadron Hypox res failure requriing high flow O2 Hyptoension - resolved --bl luiza neg so far -- not on abx Afib - currently not on rate control agent Hr controlled, off levophed which started y'day in the ER, HR controlled, not on drips or vasopressors. all markers were COVID were high - crp, ferritin, AST and Cr, and Cr trending down. TALISHA --Cr improving stage 3 pressure ulcer -POA - routine nursing care Still on high flow O2 -- 87% at fio2 of 54. feels ok, d-dimer high, -- no repeat markers done. will get them. switch from IV methylprednis--- to decadron Po Full code.
[2020-02-28] MEDS ORDERED: Metoprolol Tartrate 5 MG/5 ML VIAL IVP PRN (12:52)
[2020-02-28] MEDS: Diphenoxylate HCl/Atropine Tablet PO PRN (14:34)
[2020-02-28] MEDS: Metoprolol Tartrate 25 MG TAB PO SCH (19:28)
[2020-02-29 05:52] LABS: ALT (SGPT) 37 U/L (8-55); AST (SGOT) 31 U/L (5-34); Albumin 2.6 g/dL (3.4-4.8); Alkaline Phosphatase 173 U/L (40-110); Bilirubin, Direct 0.5 mg/dL (0.1-0.3); Bilirubin, Total 0.6 mg/dL (0.2-1.2); CRP (Inflammatory) 11.37 mg/dL (= or < 0.5); Protein, Total 5.4 g/dL (6.0-8.3)
[2020-02-29] MEDS: Albuterol 200 PUFF (6.7GM INHALER) INH SCH ×4 (05:59→22:19)
[2020-02-29] MEDS: Levothyroxine Sodium 75 MCG TAB PO SCH (05:59)
[2020-02-29] MEDS: Mometasone 200 MCG/Formoterol 5 MCG 120 PUFF INHALER INH SCH ×2 (05:59→18:11)
[2020-02-29] MEDS: methylPREDNISolone Sod Succ/PF 125 MG/2 ML VIAL IVP SCH (07:52)
[2020-02-29] MEDS: Metoprolol Tartrate 25 MG TAB PO SCH (07:53)
[2020-02-29] MEDS: Doxycycline 100 MG CAP PO SCH ×2 (07:53→21:50)
[2020-02-29] MEDS: Ergocalciferol 1.25 MG(50,000 UNITS) CAP PO SCH (07:53)
[2020-02-29] MEDS: Aspirin 81 mg Enteric Coated Tablet PO SCH (07:53)
[2020-02-29] MEDS: Heparin 5,000 UNITS/ML VIAL SC SCH ×2 (07:54→21:51)
[2020-02-29] MEDS: Calcitriol 0.25 MCG CAP PO SCH (07:54)
[2020-02-29] MEDS: traMADol HCl 50 MG TAB PO PRN (08:10)
[2020-02-29 09:24] LABS: #Lymphocytes 0.7 thou/uL (1.20-3.40); #Monocytes 0.9 thou/uL (0.11-0.59); #Neutrophils 13.1 thou/uL (1.40-6.50); %Basophils 0.3 % (0.0-1.0); %Eosinophils 0.1 % (0.0-10.0); %Lymphocytes 4.6 % (21.0-51.0); %Monocytes 6.1 % (0.0-10.0); %Neutrophils 88.9 % (42.0-75.0); Hemoglobin 13.3 g/dL (12.0-16.0); Mean Corpuscular HGB CONC 30.9 g/dL (32.0-36.0); Mean Corpuscular Hemoglobin 28.3 pg (27.0-31.0); Mean Corpuscular Volume 91.3 fL (78.0-98.0); Mean Platelet Volume 10.1 fL (7.4-10.4); Platelet Count 139 thou/uL (130-400); Red Blood Cell (RBC) Count 4.71 mill/uL (4.20-5.40); White Blood Cell (WBC) Count 14.8 thou/uL (4.8-10.8)
[2020-02-29 09:37] LABS: Anion Gap 13 mmol/L (10-20); BUN (Urea Nitrogen) 32 mg/dL (9.8-20.1); Calc. Creatinine Clearance 49 mL/min (70-130); Carbon Dioxide 25 mmol/L (23-31); Chloride 104 mmol/L (98-107); Estimated GFR-MDRD 67; Glucose 110 mg/dL (83-110); Sodium 138 mmol/L (136-145)
--- NOTE | 2020-02-29 13:16 | PDOC.HOSPP ---
- Subjective Encounter Date: 02/29/20 Encounter Time: 13:14 Subjective: Ms. Machuca was seen today in follow-up of COVID pneumonia. She says she feels ok. She denies feeling short of breath. - Objective Vital Signs & Weight: Vital Signs (12 hours) Temp Pulse Resp BP Pulse Ox 02/29/20 08:10 90 L 02/29/20 08:05 98.6 F 96 18 145/79 H 90 L 02/29/20 03:52 98.0 F 97 15 135/88 95 Weight Admit Weight 125 lb Weight 127 lb Most Recent Monitor Data Heart Rate from ECG 103 NIBP 130/74 NIBP BP-Mean 92 Respiration from ECG 11 SpO2 91 I&O: 02/28/20 02/29/20 03/01/20 06:59 06:59 06:59 Intake Total 1160 1400 Output Total 1535 500 Balance -375 900 Result Diagrams: 02/29/20 09:16 02/29/20 09:16 Hospitalist ROS - Medication Medications: Active Medications Generic Name Dose Route Start Last Admin Trade Name Freq PRN Reason Stop Dose Admin Acetaminophen 650 mg 02/25/20 14:04 02/26/20 23:58 Tylenol PO 650 mg Q4H PRN Administration Headache/Fever/Mild Pain (1-3) Albuterol Sulfate 2 puff 02/26/20 19:00 02/29/20 11:10 Proventil Hfa INH 2 puff [id number] EDGARDO Administration Aspirin 81 mg 02/26/20 09:00 02/29/20 07:53 Ecotrin PO 81 mg DAILY EDGARDO Administration Calcitriol 0.25 mcg 02/26/20 09:00 02/29/20 07:54 Rocaltrol PO 0.25 mcg DAILY EDGARDO Administration Diphenoxylate HCl/Atropine 1 tab 02/27/20 10:43 02/28/20 14:34 Lomotil PO 1 tab QIDPRN PRN Administration Diarrhea/Loose Stools Doxycycline Hyclate 100 mg 02/26/20 09:00 02/29/20 07:53 Vibramycin PO 03/04/20 09:01 100 mg BID EDGARDO Administration Ergocalciferol 1.25 mg 02/26/20 09:00 02/29/20 07:53 Drisdol PO 1.25 mg DAILY EDGARDO Administration Heparin Sodium (Porcine) 5,000 units 02/25/20 21:00 02/29/20 07:54 Heparin SC 5,000 units BID EDGARDO Administration Levothyroxine Sodium 75 mcg 02/26/20 06:00 02/29/20 05:59 Synthroid PO 75 mcg 0600 EDGARDO Administration Methylprednisolone Sodium Succinate 60 mg 02/28/20 09:00 02/29/20 07:52 Solu-Medrol IVP 60 mg DAILY EDGARDO Administration Metoprolol Tartrate 5 mg 02/28/20 12:52 02/28/20 13:35 Lopressor IVP 03/02/20 12:53 5 mg Q4H PRN Administration Blood Pressure Metoprolol Tartrate 6.25 mg 02/28/20 21:00 02/29/20 07:53 Lopressor PO 6.25 mg BID EDGARDO Administration Mometasone Furoate/Formoterol Fumar 2 puff 02/27/20 18:30 02/29/20 05:59 Dulera 200 Mcg/5 Mcg Inhaler INH 2 puff BID-RT EDGARDO Administration Sodium Chloride 10 ml 02/25/20 21:00 02/29/20 07:55 Flush - Normal Saline IVF 10 ml Q12HR EDGARDO Administration Tramadol HCl 50 mg 02/27/20 10:42 02/29/20 08:10 Ultram PO 50 mg Q6H PRN Administration PAIN 4-6 - Exam Eye: PERRL, anicteric sclera Heart: no murmur, no gallops, no rubs, normal peripheral pulses, irregular (+ mildly tachycardic) Gastrointestinal: soft, non-tender, non-distended, normal bowel sounds, no palpable masses, no hepatomegaly Extremities: no cyanosis, no edema Hosp A/P (1) Acute respiratory failure with hypoxemia Code(s): J96.01 - ACUTE RESPIRATORY FAILURE WITH HYPOXIA Status: Acute (2) Pneumonia due to COVID-19 virus Code(s): U07.1 - COVID-19; J12.89 - OTHER VIRAL PNEUMONIA Status: Acute (3) Atrial fibrillation Code(s): I48.91 - UNSPECIFIED ATRIAL FIBRILLATION Status: Acute (4) Hypertension Code(s): I10 - ESSENTIAL (PRIMARY) HYPERTENSION Status: Acute (5) Hypothyroidism Code(s): E03.9 - HYPOTHYROIDISM, UNSPECIFIED Status: Acute - Plan * COVID pneumonia- continue symptomatic and supportive management * COPD with Chronic respiratory failure- she says her oxygen saturation usually run about 70-80's without supplemental oxygen. Shesays she has gotten use to this, and does not feel short of breath right now * Continue high flow oxygen * AFIB- heart rate is beginning to creep up- will place her back on Carvediolol , and Cardizem ( her home medications) * Hypothyroidism- due to the AFIB- will check her thyroid function tests in the AM
[2020-02-29] MEDS: Acetaminophen 325 MG TAB PO PRN (21:05)
[2020-02-29] MEDS: Carvedilol 25 MG TAB PO SCH (21:50)
[2020-03-01 04:53] LABS: #Lymphocytes 0.3 thou/uL (1.20-3.40); #Monocytes 0.9 thou/uL (0.11-0.59); #Neutrophils 11.4 thou/uL (1.40-6.50); %Basophils 0.2 % (0.0-1.0); %Eosinophils 0.1 % (0.0-10.0); %Lymphocytes 2.2 % (21.0-51.0); %Neutrophils 90.5 % (42.0-75.0); Hemoglobin 11.9 g/dL (12.0-16.0); Mean Corpuscular Hemoglobin 26.7 pg (27.0-31.0); Mean Platelet Volume 10.1 fL (7.4-10.4); Platelet Count 141 thou/uL (130-400); RBC Distribution Width 16.8 % (11.5-14.5); Red Blood Cell (RBC) Count 4.44 mill/uL (4.20-5.40); White Blood Cell (WBC) Count 12.6 thou/uL (4.8-10.8)
[2020-03-01 05:09] LABS: Anion Gap 12 mmol/L (10-20); BUN (Urea Nitrogen) 44 mg/dL (9.8-20.1); CRP (Inflammatory) 11.06 mg/dL (= or < 0.5); Calc. Creatinine Clearance 41 mL/min (70-130); Calcium 8.6 mg/dL (7.8-10.44); Carbon Dioxide 24 mmol/L (23-31); Chloride 104 mmol/L (98-107); Estimated GFR-MDRD 54; Glucose 142 mg/dL (83-110); Potassium 3.9 mmol/L (3.5-5.1); Sodium 136 mmol/L (136-145)
[2020-03-01 05:27] LABS: Free T4 (Free Thyroxine) 0.88 ng/dL (0.70-1.48); Thyroid Stimulating Hormone 1.136 uIU/mL (0.35-4.94)
[2020-03-01] MEDS: Acetaminophen 325 MG TAB PO PRN (05:50)
[2020-03-01] MEDS: Levothyroxine Sodium 75 MCG TAB PO SCH (05:50)
[2020-03-01] MEDS: Mometasone 200 MCG/Formoterol 5 MCG 120 PUFF INHALER INH SCH ×2 (05:50→18:14)
[2020-03-01] MEDS: methylPREDNISolone Sod Succ/PF 125 MG/2 ML VIAL IVP SCH (07:40)
[2020-03-01] MEDS: Ascorbic Acid 500 mg Chewable Tablet PO SCH (07:41)
[2020-03-01] MEDS: Doxycycline 100 MG CAP PO SCH ×2 (07:41→19:58)
[2020-03-01] MEDS: Ergocalciferol 1.25 MG(50,000 UNITS) CAP PO SCH (07:41)
[2020-03-01] MEDS: Calcitriol 0.25 MCG CAP PO SCH (07:41)
[2020-03-01] MEDS: Folic Acid/Vit B Comp W-C PO SCH (07:42)
[2020-03-01] MEDS: Heparin 5,000 UNITS/ML VIAL SC SCH ×2 (07:42→19:58)
[2020-03-01] MEDS: Aspirin 81 mg Enteric Coated Tablet PO SCH (07:42)
[2020-03-01] MEDS: Albuterol 200 PUFF (6.7GM INHALER) INH SCH ×4 (07:42→19:58)
[2020-03-01] MEDS: Carvedilol 25 MG TAB PO SCH ×2 (08:09→19:58)
--- NOTE | 2020-03-01 15:07 | PDOC.HOSPP ---
- Subjective Encounter Date: 03/01/20 Encounter Time: 15:05 Subjective: Ms. Machuca was seen today in follow-up of COVID pneumonia. She says she feels fine. She would like to be discharged in time to see her grandson's graduation. - Objective Vital Signs & Weight: Vital Signs (12 hours) Temp Pulse Resp BP BP Pulse Ox 03/01/20 12:00 98.2 F 73 20 100/57 L 88 L 03/01/20 08:05 93 L 03/01/20 07:50 97.8 F 75 18 109/48 L 93 L 03/01/20 06:10 97.9 F 78 22 H 104/56 L 91 L Weight Admit Weight 125 lb Weight 130 lb 14.4 oz Most Recent Monitor Data Heart Rate from ECG 103 NIBP 130/74 NIBP BP-Mean 92 Respiration from ECG 11 SpO2 91 I&O: 02/29/20 03/01/20 03/02/20 06:59 06:59 06:59 Intake Total 1400 1260 480 Output Total 500 650 Balance 900 610 480 Result Diagrams: 03/01/20 04:29 03/01/20 04:29 Hospitalist ROS - Medication Medications: Active Medications Generic Name Dose Route Start Last Admin Trade Name Freq PRN Reason Stop Dose Admin Acetaminophen 650 mg 02/25/20 14:04 03/01/20 05:50 Tylenol PO 650 mg Q4H PRN Administration Headache/Fever/Mild Pain (1-3) Albuterol Sulfate 2 puff 02/26/20 19:00 03/01/20 11:51 Proventil Hfa INH 2 puff [id number] EDGARDO Administration Ascorbic Acid 1,000 mg 03/01/20 09:00 03/01/20 07:41 Vitamin C PO 1,000 mg DAILY EDGARDO Administration Aspirin 81 mg 02/26/20 09:00 03/01/20 07:42 Ecotrin PO 81 mg DAILY EDGARDO Administration Calcitriol 0.25 mcg 02/26/20 09:00 03/01/20 07:41 Rocaltrol PO 0.25 mcg DAILY EDGARDO Administration Carvedilol 25 mg 02/29/20 21:00 03/01/20 08:09 Coreg PO Not Given BID EDGARDO Diltiazem HCl 240 mg 02/29/20 18:00 02/29/20 18:11 Cardizem Cd PO 240 mg 1800 EDGARDO Administration Diphenoxylate HCl/Atropine 1 tab 02/27/20 10:43 02/28/20 14:34 Lomotil PO 1 tab QIDPRN PRN Administration Diarrhea/Loose Stools Doxycycline Hyclate 100 mg 02/26/20 09:00 03/01/20 07:41 Vibramycin PO 03/04/20 09:01 100 mg BID EDGARDO Administration Ergocalciferol 1.25 mg 02/26/20 09:00 03/01/20 07:41 Drisdol PO 1.25 mg DAILY EDGARDO Administration Heparin Sodium (Porcine) 5,000 units 02/25/20 21:00 03/01/20 07:42 Heparin SC 5,000 units BID EDGARDO Administration Levothyroxine Sodium 75 mcg 02/26/20 06:00 03/01/20 05:50 Synthroid PO 75 mcg 0600 EDGARDO Administration Methylprednisolone Sodium Succinate 60 mg 02/28/20 09:00 03/01/20 07:40 Solu-Medrol IVP 60 mg DAILY EDGARDO Administration Metoprolol Tartrate 5 mg 02/28/20 12:52 02/28/20 13:35 Lopressor IVP 03/02/20 12:53 5 mg Q4H PRN Administration Blood Pressure Mometasone Furoate/Formoterol Fumar 2 puff 02/27/20 18:30 03/01/20 05:50 Dulera 200 Mcg/5 Mcg Inhaler INH 2 puff BID-RT EDGARDO Administration Pantoprazole Sodium 40 mg 02/29/20 21:00 03/01/20 07:42 Protonix PO 40 mg BID EDGARDO Administration Sodium Chloride 10 ml 02/25/20 21:00 03/01/20 07:42 Flush - Normal Saline IVF 10 ml Q12HR EDGARDO Administration Tramadol HCl 50 mg 02/27/20 10:42 02/29/20 08:10 Ultram PO 50 mg Q6H PRN Administration PAIN 4-6 Vitamin B Complex/Vit C/Folic Acid 1 tab 03/01/20 09:00 03/01/20 07:42 Nephro-John Tablet PO 1 tab DAILY EDGARDO Administration - Exam Eye: PERRL, anicteric sclera Heart: no murmur, no gallops, no rubs, normal peripheral pulses, irregular ( heart rate has improved) Respiratory: CTAB, no wheezes, no rales, no ronchi, normal chest expansion Gastrointestinal: soft, non-tender, non-distended, normal bowel sounds, no palpable masses Extremities: no cyanosis, no edema Hosp A/P (1) Acute respiratory failure with hypoxemia Code(s): J96.01 - ACUTE RESPIRATORY FAILURE WITH HYPOXIA Status: Acute (2) Pneumonia due to COVID-19 virus Code(s): U07.1 - COVID-19; J12.89 - OTHER VIRAL PNEUMONIA Status: Acute (3) Atrial fibrillation Code(s): I48.91 - UNSPECIFIED ATRIAL FIBRILLATION Status: Acute (4) Hypertension Code(s): I10 - ESSENTIAL (PRIMARY) HYPERTENSION Status: Acute (5) Hypothyroidism Code(s): E03.9 - HYPOTHYROIDISM, UNSPECIFIED Status: Acute - Plan * COVID pneumonia- continue symptomatic and supportive management * COPD with Chronic respiratory failure- clinically stable. She says she has high oxygen requirements at home * Continue high flow oxygen and wean as tolerated * AFIB- heart rate is beginning to creep up- her heart rate is better * Hypothyroidism- due to the AFIB- Thyroid function tests are normal * Inflammatory markers are trending down * Hopefully home in a few days
[2020-03-02] MEDS: Levothyroxine Sodium 75 MCG TAB PO SCH (06:21)
[2020-03-02] MEDS: Mometasone 200 MCG/Formoterol 5 MCG 120 PUFF INHALER INH SCH ×2 (06:22→18:41)
[2020-03-02] MEDS: Albuterol 200 PUFF (6.7GM INHALER) INH SCH ×4 (06:22→18:41)
[2020-03-02] MEDS: Ascorbic Acid 500 mg Chewable Tablet PO SCH (08:52)
[2020-03-02] MEDS: Folic Acid/Vit B Comp W-C PO SCH (08:53)
[2020-03-02] MEDS: Ergocalciferol 1.25 MG(50,000 UNITS) CAP PO SCH (08:53)
[2020-03-02] MEDS: Doxycycline 100 MG CAP PO SCH ×2 (08:53→19:58)
[2020-03-02] MEDS: Calcitriol 0.25 MCG CAP PO SCH (08:53)
[2020-03-02] MEDS: Aspirin 81 mg Enteric Coated Tablet PO SCH (08:53)
[2020-03-02] MEDS: Carvedilol 25 MG TAB PO SCH ×2 (08:53→19:58)
[2020-03-02] MEDS: Heparin 5,000 UNITS/ML VIAL SC SCH ×2 (08:54→19:58)
[2020-03-02] MEDS: methylPREDNISolone Sod Succ/PF 125 MG/2 ML VIAL IVP SCH ×2 (08:54→19:58)
[2020-03-02 10:10] LABS: Actual Bicarbonate (HCO3a) 25.2 mEq/L (22-28); Base Excess (BEa) 2.5 mEq/L (-2.0 to +3.0); CO2 Tension 32.6 mmHg (35.0-45.0); Calcium, Ionized (arterial) 1.27 mmol/L (1.12-1.30); Carboxyhemoglobin (COHb) 1.2 gm% (0.0-3.0); Hemoglobin (Hb) 12.3 g/dL (12.0-16.0); pH, Arterial 7.51 (7.35-7.45)
[2020-03-02 10:12] LABS: O2 Tension (PaO2), arterial 43.8 mmHg (> 60.0)
[2020-03-02 10:13] LABS: Puncture Site RRA
[2020-03-02 10:15] LABS: #Lymphocytes 0.4 thou/uL (1.20-3.40); #Monocytes 0.8 thou/uL (0.11-0.59); #Neutrophils 14.8 thou/uL (1.40-6.50); %Eosinophils 0.2 % (0.0-10.0); %Lymphocytes 2.5 % (21.0-51.0); %Monocytes 4.9 % (0.0-10.0); %Neutrophils 92.5 % (42.0-75.0); Hemoglobin 12.3 g/dL (12.0-16.0); Mean Corpuscular Hemoglobin 28.3 pg (27.0-31.0); Mean Corpuscular Volume 88.4 fL (78.0-98.0); Mean Platelet Volume 10.4 fL (7.4-10.4); Platelet Count 157 thou/uL (130-400); RBC Distribution Width 16.9 % (11.5-14.5); Red Blood Cell (RBC) Count 4.34 mill/uL (4.20-5.40)
[2020-03-02 10:36] LABS: Anion Gap 13 mmol/L (10-20); BUN (Urea Nitrogen) 49 mg/dL (9.8-20.1); Calc. Creatinine Clearance 44 mL/min (70-130); Carbon Dioxide 24 mmol/L (23-31); Chloride 104 mmol/L (98-107); Estimated GFR-MDRD 57; Glucose 124 mg/dL (83-110); Potassium 3.8 mmol/L (3.5-5.1); Sodium 137 mmol/L (136-145)
--- NOTE | 2020-03-02 11:54 | RAD ---
EXAM: Single view of the chest HISTORY: Covid pneumonia with hypoxia COMPARISON: 02/25/2020 FINDINGS: Single view of the chest shows an enlarged but stable cardiomediastinal silhouette. Diffus e increased interstitial markings are present. Opacity is seen in both lung bases which may represent atelectasis or infiltrates. The bones are unremarkable. IMPRESSION: Stable exam
--- NOTE | 2020-03-02 15:21 | PDOC.HOSPP ---
- Subjective Encounter Date: 03/02/20 Encounter Time: 15:20 Subjective: Ms. Machuca was seen today in follow-up of respiratory failure due to COVID infection. She says she feels about the same today as yesterday. She was a bit drowsy earlier, but this has improved. She is currently working with PT today - Objective Vital Signs & Weight: Vital Signs (12 hours) Temp Pulse Resp BP Pulse Ox 03/02/20 12:00 97.6 F 112 H 22 H 116/68 88 L 03/02/20 10:57 96 03/02/20 10:07 84 L 03/02/20 09:21 98.1 F 129 H 22 H 131/85 88 L 03/02/20 04:44 90 L 03/02/20 04:35 90 L 03/02/20 04:05 95 115/55 L 83 L 03/02/20 03:55 132 H 138/74 70 L 03/02/20 03:50 98.6 F 103 H 24 H 97/67 65 L Weight Admit Weight 125 lb Weight 130 lb 3.2 oz Most Recent Monitor Data Heart Rate from ECG 103 NIBP 130/74 NIBP BP-Mean 92 Respiration from ECG 11 SpO2 91 I&O: 03/01/20 03/02/20 03/03/20 06:59 06:59 06:59 Intake Total 1260 960 720 Output Total 650 825 625 Balance 610 135 95 Result Diagrams: 03/02/20 09:55 03/02/20 09:55 Hospitalist ROS - Medication Medications: Active Medications Generic Name Dose Route Start Last Admin Trade Name Freq PRN Reason Stop Dose Admin Acetaminophen 650 mg 02/25/20 14:04 03/01/20 05:50 Tylenol PO 650 mg Q4H PRN Administration Headache/Fever/Mild Pain (1-3) Albuterol Sulfate 2 puff 02/26/20 19:00 03/02/20 10:08 Proventil Hfa INH 2 puff [id number] EDGARDO Administration Ascorbic Acid 1,000 mg 03/01/20 09:00 03/02/20 08:52 Vitamin C PO 1,000 mg DAILY EDGARDO Administration Aspirin 81 mg 02/26/20 09:00 03/02/20 08:53 Ecotrin PO 81 mg DAILY EDGARDO Administration Calcitriol 0.25 mcg 02/26/20 09:00 03/02/20 08:53 Rocaltrol PO 0.25 mcg DAILY EDGARDO Administration Carvedilol 25 mg 02/29/20 21:00 03/02/20 08:53 Coreg PO 25 mg BID EDGARDO Administration Diltiazem HCl 240 mg 02/29/20 18:00 03/01/20 18:15 Cardizem Cd PO Not Given 1800 EDGARDO Diphenoxylate HCl/Atropine 1 tab 02/27/20 10:43 02/28/20 14:34 Lomotil PO 1 tab QIDPRN PRN Administration Diarrhea/Loose Stools Doxycycline Hyclate 100 mg 02/26/20 09:00 03/02/20 08:53 Vibramycin PO 03/04/20 09:01 100 mg BID EDGARDO Administration Ergocalciferol 1.25 mg 02/26/20 09:00 03/02/20 08:53 Drisdol PO 1.25 mg DAILY EDGARDO Administration Heparin Sodium (Porcine) 5,000 units 02/25/20 21:00 03/02/20 08:54 Heparin SC 5,000 units BID EDGARDO Administration Levothyroxine Sodium 75 mcg 02/26/20 06:00 03/02/20 06:21 Synthroid PO 75 mcg 0600 EDGARDO Administration Mometasone Furoate/Formoterol Fumar 2 puff 02/27/20 18:30 03/02/20 06:22 Dulera 200 Mcg/5 Mcg Inhaler INH 2 puff BID-RT EDGARDO Administration Pantoprazole Sodium 40 mg 02/29/20 21:00 03/02/20 08:55 Protonix PO 40 mg BID EDGARDO Administration Sodium Chloride 10 ml 02/25/20 21:00 03/02/20 08:56 Flush - Normal Saline IVF 10 ml Q12HR EDGARDO Administration Tramadol HCl 50 mg 02/27/20 10:42 02/29/20 08:10 Ultram PO 50 mg Q6H PRN Administration PAIN 4-6 Vitamin B Complex/Vit C/Folic Acid 1 tab 03/01/20 09:00 03/02/20 08:53 Nephro-John Tablet PO 1 tab DAILY EDGARDO Administration - Exam Eye: PERRL, anicteric sclera Heart: no murmur, no gallops, no rubs, irregular Respiratory: rales Gastrointestinal: soft, non-tender, non-distended, normal bowel sounds, no palpable masses Extremities: no cyanosis, 1+ LE edema Hosp A/P (1) Acute respiratory failure with hypoxemia Code(s): J96.01 - ACUTE RESPIRATORY FAILURE WITH HYPOXIA Status: Acute (2) Pneumonia due to COVID-19 virus Code(s): U07.1 - COVID-19; J12.89 - OTHER VIRAL PNEUMONIA Status: Acute (3) Atrial fibrillation Code(s): I48.91 - UNSPECIFIED ATRIAL FIBRILLATION Status: Acute (4) Hypertension Code(s): I10 - ESSENTIAL (PRIMARY) HYPERTENSION Status: Acute (5) Hypothyroidism Code(s): E03.9 - HYPOTHYROIDISM, UNSPECIFIED Status: Acute - Plan * COVID pneumonia- continue symptomatic and supportive management * COPD with Chronic respiratory failure- She brought her Anoro inhaler from home to use, continue * She was evaluated by Pulmonary- will defer those recommendations * Continue high flow oxygen and wean as tolerated * AFIB- heart rate is beginning to creep up- her heart rate is better * Hypothyroidism- due to the AFIB- Thyroid function tests are normal * Inflammatory markers are trending down * Continue to monitor in the hospital * Continue PT/OT
--- NOTE | 2020-03-02 17:39 | PRG ---
DATE OF SERVICE: 03/02/2020 SUBJECTIVE: Ms. Machuca is alert. She is mildly dyspneic at rest. No chest pain. Less cough. No abdominal pain, and voiding in the diaper. OBJECTIVE: VITAL SIGNS: T-max 98.6, blood pressure 105/75, pulse 96 to 112. She is on high flow nasal cannula and she is saturating at 88. LUNGS: The patient has few inspiratory crackles at the bases. No wheezing. CARDIAC: S1 and S2. ABDOMEN: Soft. Not distended. ASSESSMENT AND DISCUSSION: Today is her 15th day of COVID pneumonia and she is not making much progress in terms of her oximetry. The ferritin is kind of steady state, was higher than on admission, but less than 2 days ago. The C-reactive protein is about half where it was on admission, and the D-dimer is higher than on admission. Repeat chest x-ray showed stable diffuse interstitial markings and opacities in lung bases. Severe COVID pneumonia with chronic obstructive pulmonary disease. Decrease in the frequency of coughing spells, but otherwise not much improvement in oxygen status and inflammatory markers. Since she had premorbid reduced lung capacity, it is possible that this additional insult has caused further destruction of lung parenchyma that will prevent the patient from recovering her status quo-ante lung function and ability to be without oxygen supplementation. She might not survive this. Job ID: [id number] [facility]
--- NOTE | 2020-03-02 19:03 | CON ---
DATE OF CONSULTATION: 03/02/2020 INDICATIONS FOR CONSULTATION: An 79-year-old female who is COVID positive since I believe 02/19. She has a long history of atrial fibrillation. She was admitted to the hospital. We were asked to see her due to atrial fibrillation with rapid ventricular response and occasional bradycardia with pauses up to 2.5 seconds. She was asymptomatic during the bradycardia and the pauses. Apparently, she has been on Coreg, diltiazem, and also p.r.n. metoprolol. Metoprolol has now been held after she had the bradycardia associated with atrial fibrillation. These episodes did not last very long. She would just dip down and she would increase her heart rate again. This has not been sustained. She also has been having problems with oxygenation today. O2 saturation has been decreased. Her O2 saturation is 84 to 88 on high-flow nasal cannula, FiO2 of 82% with a flow rate of 60. When she was admitted, she had hypotension and decreased O2 saturation. Multiple members of family also have COVID. Her daughter also was in the hospital with COVID and apparently has crossed the garza from her room, also with respiratory complications. At this time, I would continue to hold her metoprolol. We would continue the Coreg and also diltiazem as needed. Should she develop significant bradycardia again and it would also sustain, then I would hold off on the diltiazem. She could be given low-dose of digoxin. She does have a history of chronic kidney disease; however , her creatinine is 0.94 today and appears to be stable since she has been admitted. PAST MEDICAL HISTORY: Significant for: 1. COPD. 2. Hypertension. 3. Possible congestive heart failure. 4. Amputation of the right 2nd toe. 5. She has had chronic kidney disease. 6. Hyperlipidemia. 7. She has also had a chronic right 5th toe ulceration. SOCIAL HISTORY: She has children who are alive and well. She smoked in the past. She has no alcohol use. She lives with a daughter. FAMILY HISTORY: Noncontributory. ALLERGIES: NONE. MEDICATIONS: Include: 1. Decadron. 2. Synthroid. 3. Proventil. 4. Enteric-coated aspirin. 5. Dulcolax. 6. Rocaltrol. 7. Vibramycin. 8. Drisdol. 9. Hytrin. REVIEW OF SYSTEMS: Please refer the notes already dictated by the other physicians on the case and I did not enter the patient's room due to her positive COVID. PHYSICAL EXAMINATION:Due to Covid +, exam is deferred at this time. Please see exam from other MD's. VITAL SIGNS: According to the records, her initial blood pressure was 131/88, heart rate is in the 90s to 120s, and temperature she is afebrile. Please refer to the notes dictated previously. DIAGNOSTIC STUDIES: EKG shows atrial fibrillation with no acute changes and occasional episodes of bradycardia with up to 2.5 second pause. Chest x-ray shows small bilateral pleural effusion with diffuse interstitial disease. IMPRESSION: 1. An 79-year-old female with COVID positive diagnosis and for pneumonia with chest x-ray showing diffuse interstitial changes. Bradycardia with chronic atrial fibrillation. The bradycardia is only temporary and does not appear to be symptomatic. She is already on beta blockers as well as IV diltiazem. Should she continue to have problems with bradycardia, would decrease the dose of the diltiazem and add low-dose digoxin. 2. Chronic kidney disease. This appears to be stable at this time. She would be able to tolerate a low dose of digoxin likely. We will need to be careful not to give too much digoxin to avoid digoxin toxicity. 3. History of chronic obstructive pulmonary disease. Dr. Ponce has already seen her for her chronic obstructive pulmonary disease as well as for the COVID. 4. Hypertension. This is under very good control at this time. We will continue her present medications. We more than happy to continue to follow the patient with you, but at this time she appears to be relatively stable. Should she develop severe bradycardia, which is sustained, then we will need to also decrease the dose of the beta blockers. If this does not alleviate the problem with bradycardia or hypertension, she may have underlying sick sinus syndrome, may eventually need to undergo pacemaker insertion just due to the bradycardia, then we could continue medications in order to control the tachycardia. Job ID: [id number] [facility]
[2020-03-02] MEDS: Cefepime 1 GM in Sodium Chloride 0.9% 100 ML IVPB SCH (19:59)
[2020-03-03] MEDS: Albuterol 200 PUFF (6.7GM INHALER) INH SCH ×5 (04:52→19:50)
[2020-03-03] MEDS: Mometasone 200 MCG/Formoterol 5 MCG 120 PUFF INHALER INH SCH ×3 (04:52→19:05)
[2020-03-03] MEDS: Levothyroxine Sodium 75 MCG TAB PO SCH (04:52)
[2020-03-03] MEDS: methylPREDNISolone Sod Succ/PF 125 MG/2 ML VIAL IVP SCH ×2 (07:33→19:30)
[2020-03-03] MEDS: Cefepime 1 GM in Sodium Chloride 0.9% 100 ML IVPB SCH ×2 (07:34→19:33)
[2020-03-03] MEDS: Heparin 5,000 UNITS/ML VIAL SC SCH ×2 (07:34→19:31)
[2020-03-03] MEDS: Calcitriol 0.25 MCG CAP PO SCH (07:34)
[2020-03-03] MEDS: Folic Acid/Vit B Comp W-C PO SCH (07:35)
[2020-03-03] MEDS: Ascorbic Acid 500 mg Chewable Tablet PO SCH (07:35)
[2020-03-03] MEDS: Doxycycline 100 MG CAP PO SCH ×2 (07:35→19:32)
[2020-03-03] MEDS: Ergocalciferol 1.25 MG(50,000 UNITS) CAP PO SCH (07:39)
[2020-03-03] MEDS: Aspirin 81 mg Enteric Coated Tablet PO SCH (07:39)
[2020-03-03] MEDS: Carvedilol 25 MG TAB PO SCH ×2 (07:39→19:32)
--- NOTE | 2020-03-03 07:49 | PRG ---
DATE OF SERVICE: 03/02/2020 SUBJECTIVE: Kareen Machuca is an 79-year-old female. This morning, she was hypoxic, high flow, sats are running 83\84, high flow 60 L, 82% FiO2. OBJECTIVE: VITAL SIGNS: Temperature 97, blood pressure 160/68. When we entered the room, she said she was short of breath, but her sats were anywhere from 84 to 88, adequate for her. CHEST: Bilateral crackles. CARDIAC: Normal S1, S2. No gallops. ABDOMEN: Soft. No masses. DIAGNOSTIC DATA: X-ray shows bilateral infiltrates and fibrosis, maybe some questionable new infiltrates in the base. IMPRESSION: Respiratory failure, underlying chronic obstructive pulmonary disease, pulmonary fibrosis, possibly superimposed fluid. PLAN: BNP is ordered. Steroids being initiated, 40 twice a day Solu-Medrol, Maxipime 1 g twice a day. I spoke to the patient as well as the patient's son, they do not want intubation. They would be willing to try BiPAP at this stage. The patient says she is comfortable, does not want to be placed on BiPAP. I told her if this were to be the case, BiPAP placement, she would be transferred to the ICU. So, for the time being, we are going to continue to monitor with the sats in the high 80s more than adequate. If they drop less than 80s, we can consider trial of BiPAP. Overall prognosis is guarded. Job ID: [id number]
[2020-03-03] MEDS: traMADol HCl 50 MG TAB PO PRN (08:29)
[2020-03-03] MEDS ORDERED: Furosemide 20 MG/2 ML VIAL SLOW IVP SCH (09:30)
--- NOTE | 2020-03-03 12:40 | PDOC.HOSPP ---
- Subjective Encounter Date: 03/03/20 Encounter Time: 12:36 Subjective: Ms. Machuca was seen today in follow-up of COVID pneumonia with respiratory failure. She does not have any complaints. She admits to feeling extremely weak however. - Objective Vital Signs & Weight: Vital Signs (12 hours) Temp Pulse Pulse Resp BP BP Pulse Ox 03/03/20 09:31 65 95/50 L 03/03/20 08:16 89 L 03/03/20 08:05 97.9 F 72 27 H 101/57 L 91 L 03/03/20 02:48 98.1 F 75 22 H 113/58 L 88 L Pulse Ox Pulse Ox Pulse Ox 03/03/20 09:31 88 L 90 L 89 L 03/03/20 08:16 03/03/20 08:05 03/03/20 02:48 Weight Admit Weight 125 lb Weight 129 lb 8 oz Most Recent Monitor Data Heart Rate from ECG 103 NIBP 130/74 NIBP BP-Mean 92 Respiration from ECG 11 SpO2 91 I&O: 03/02/20 03/03/20 03/04/20 06:59 06:59 06:59 Intake Total 960 1080 Output Total 825 1755 250 Balance 135 -665 -250 Result Diagrams: 03/02/20 09:55 03/02/20 09:55 Hospitalist ROS - Medication Medications: Active Medications Generic Name Dose Route Start Last Admin Trade Name Freq PRN Reason Stop Dose Admin Acetaminophen 650 mg 02/25/20 14:04 03/01/20 05:50 Tylenol PO 650 mg Q4H PRN Administration Headache/Fever/Mild Pain (1-3) Albuterol Sulfate 2 puff 02/26/20 19:00 03/03/20 11:04 Proventil Hfa INH Not Given [id number] EDGARDO Ascorbic Acid 1,000 mg 03/01/20 09:00 03/03/20 07:35 Vitamin C PO 1,000 mg DAILY EDGARDO Administration Aspirin 81 mg 02/26/20 09:00 03/03/20 07:39 Ecotrin PO 81 mg DAILY EDGARDO Administration Calcitriol 0.25 mcg 02/26/20 09:00 03/03/20 07:34 Rocaltrol PO 0.25 mcg DAILY EDGARDO Administration Carvedilol 25 mg 02/29/20 21:00 03/03/20 07:39 Coreg PO 25 mg BID EDGARDO Administration Diltiazem HCl 240 mg 02/29/20 18:00 03/02/20 17:53 Cardizem Cd PO 240 mg 1800 EDGARDO Administration Diphenoxylate HCl/Atropine 1 tab 02/27/20 10:43 02/28/20 14:34 Lomotil PO 1 tab QIDPRN PRN Administration Diarrhea/Loose Stools Doxycycline Hyclate 100 mg 02/26/20 09:00 03/03/20 07:35 Vibramycin PO 03/04/20 09:01 100 mg BID EDGARDO Administration Ergocalciferol 1.25 mg 02/26/20 09:00 03/03/20 07:39 Drisdol PO 1.25 mg DAILY EDGARDO Administration Heparin Sodium (Porcine) 5,000 units 02/25/20 21:00 03/03/20 07:34 Heparin SC 5,000 units BID EDGARDO Administration Cefepime HCl 1 gm/ Sodium 100 mls @ 200 mls/hr 03/02/20 21:00 03/03/20 07:34 Chloride IVPB 100 mls Q12HR EDGARDO Administration Levothyroxine Sodium 75 mcg 02/26/20 06:00 03/03/20 04:52 Synthroid PO 75 mcg 0600 EDGARDO Administration Methylprednisolone Sodium Succinate 40 mg 03/02/20 21:00 03/03/20 07:33 Solu-Medrol IVP 40 mg BID EDGARDO Administration Mometasone Furoate/Formoterol Fumar 2 puff 02/27/20 18:30 03/03/20 05:22 Dulera 200 Mcg/5 Mcg Inhaler INH Not Given BID-RT EDGARDO Pantoprazole Sodium 40 mg 02/29/20 21:00 03/03/20 07:39 Protonix PO 40 mg BID EDGARDO Administration Sodium Chloride 10 ml 02/25/20 21:00 03/03/20 07:34 Flush - Normal Saline IVF 10 ml Q12HR EDGARDO Administration Tramadol HCl 50 mg 02/27/20 10:42 03/03/20 08:29 Ultram PO 50 mg Q6H PRN Administration PAIN 4-6 Vitamin B Complex/Vit C/Folic Acid 1 tab 03/01/20 09:00 03/03/20 07:35 Nephro-John Tablet PO 1 tab DAILY EDGARDO Administration - Exam Eye: PERRL, anicteric sclera Heart: RRR, no murmur, no gallops, no rubs, normal peripheral pulses Respiratory: rales (biltaeral bases) Gastrointestinal: soft, non-tender, non-distended, normal bowel sounds Extremities: no cyanosis, no edema Hosp A/P (1) Acute respiratory failure with hypoxemia Code(s): J96.01 - ACUTE RESPIRATORY FAILURE WITH HYPOXIA Status: Acute (2) Pneumonia due to COVID-19 virus Code(s): U07.1 - COVID-19; J12.89 - OTHER VIRAL PNEUMONIA Status: Acute (3) Atrial fibrillation Code(s): I48.91 - UNSPECIFIED ATRIAL FIBRILLATION Status: Acute (4) Hypertension Code(s): I10 - ESSENTIAL (PRIMARY) HYPERTENSION Status: Acute (5) Hypothyroidism Code(s): E03.9 - HYPOTHYROIDISM, UNSPECIFIED Status: Acute - Plan * COVID pneumonia- continue symptomatic and supportive management * She continues to require high flow oxygen * COPD with Chronic respiratory failure- * She was evaluated by Pulmonary- will defer those recommendations * Continue high flow oxygen and wean as tolerated * AFIB- stable * Hypothyroidism- stable * Inflammatory markers are trending down * Continue to monitor in the hospital * Continue PT/OT
--- NOTE | 2020-03-03 13:24 | PRG ---
DATE OF SERVICE: 03/03/2020 SUBJECTIVE: Kareen Machuca, this morning, she said is a little bit better. OBJECTIVE: VITAL SIGNS: Temperature 97, pulse 72, respiratory rate 27, saturations are 90% on 60 high flow with 80%, blood pressure 101/57. CHEST: Bilateral crackles without any wheezing. CARDIAC: Normal S1 and S2. ABDOMEN: No masses. LABORATORY DATA: White count 16,000. BNP is elevated at 1000. IMPRESSION: Coronavirus positive pneumonia, superimposed congestive heart failure, and respiratory failure. She is not to be intubated. Continue high-flow. I have added diuretics to her present regime. We will follow. Job ID: [id number]
--- NOTE | 2020-03-03 14:18 | PDOC.CPN ---
- Subjective Date: 03/03/20 Time: 14:31 Interval history: This is Chart reviewed due to COVID 19 pandemic. No overnight events. - Objective Allergies/Adverse Reactions: Allergies Allergy/AdvReac Type Severity Reaction Status Date / Time No Known Allergies Allergy Verified 11/28/19 16:49 Visit Medications: Current Medications Acetaminophen (Tylenol) 650 mg PO Q4H PRN PRN Reason: Headache/Fever/Mild Pain (1-3) Last Admin: 03/01/20 05:50 Dose: 650 mg Albuterol Sulfate (Proventil Hfa) 2 puff INH [id number] [facility] Last Admin: 03/03/20 11:04 Dose: Not Given Ascorbic Acid (Vitamin C) 1,000 mg PO DAILY [facility] Last Admin: 03/03/20 07:35 Dose: 1,000 mg Aspirin (Ecotrin) 81 mg PO DAILY [facility] Last Admin: 03/03/20 07:39 Dose: 81 mg Bisacodyl (Dulcolax) 10 mg PO DAILYPRN PRN PRN Reason: Constipation Calcitriol (Rocaltrol) 0.25 mcg PO DAILY [facility] Last Admin: 03/03/20 07:34 Dose: 0.25 mcg Carvedilol (Coreg) 25 mg PO BID [facility] Last Admin: 03/03/20 07:39 Dose: 25 mg Diltiazem HCl (Cardizem Cd) 240 mg PO 1800 [facility] Last Admin: 03/02/20 17:53 Dose: 240 mg Diphenoxylate HCl/Atropine (Lomotil) 1 tab PO QIDPRN PRN PRN Reason: Diarrhea/Loose Stools Last Admin: 02/28/20 14:34 Dose: 1 tab Doxycycline Hyclate (Vibramycin) 100 mg PO BID [facility] Stop: 03/04/20 09:01 Last Admin: 03/03/20 07:35 Dose: 100 mg Ergocalciferol (Drisdol) 1.25 mg PO DAILY [facility] Last Admin: 03/03/20 07:39 Dose: 1.25 mg Furosemide (Lasix) 40 mg PO DAILY [facility] Heparin Sodium (Porcine) (Heparin) 5,000 units SC BID [facility] Last Admin: 03/03/20 07:34 Dose: 5,000 units Cefepime HCl 1 gm/ Sodium (Chloride) 100 mls @ 200 mls/hr IVPB Q12HR [facility] Last Admin: 03/03/20 07:34 Dose: 100 mls Levothyroxine Sodium (Synthroid) 75 mcg PO 0600 [facility] Last Admin: 03/03/20 04:52 Dose: 75 mcg Methylprednisolone Sodium Succinate (Solu-Medrol) 40 mg IVP BID [facility] Last Admin: 03/03/20 07:33 Dose: 40 mg Mometasone Furoate/Formoterol Fumar (Dulera 200 Mcg/5 Mcg Inhaler) 2 puff INH BID-RT [facility] Last Admin: 03/03/20 05:22 Dose: Not Given Pantoprazole Sodium (Protonix) 40 mg PO BID [facility] Last Admin: 03/03/20 07:39 Dose: 40 mg Senna/Docusate Sodium (Senokot S) 2 tab PO BID PRN PRN Reason: Constipation Sodium Chloride (Flush - Normal Saline) 10 ml IVF Q12HR [facility] Last Admin: 03/03/20 07:34 Dose: 10 ml Sodium Chloride (Flush - Normal Saline) 10 ml IVF PRN PRN PRN Reason: Saline Flush Tramadol HCl (Ultram) 50 mg PO Q6H PRN PRN Reason: PAIN 4-6 Last Admin: 03/03/20 08:29 Dose: 50 mg Vitamin B Complex/Vit C/Folic Acid (Nephro-John Tablet) 1 tab PO DAILY [facility] Last Admin: 03/03/20 07:35 Dose: 1 tab Vital Signs & Weight: Vital Signs Temp Pulse Pulse Resp BP BP Pulse Ox 03/03/20 09:31 65 95/50 L 03/03/20 08:16 89 L 03/03/20 08:05 97.9 F 72 27 H 101/57 L 91 L 03/03/20 02:48 98.1 F 75 22 H 113/58 L 88 L Pulse Ox Pulse Ox Pulse Ox 03/03/20 09:31 88 L 90 L 89 L 03/03/20 08:16 03/03/20 08:05 03/03/20 02:48 Admit Weight 125 lb Weight 129 lb 8 oz - Labs Result Diagrams: 03/02/20 09:55 03/02/20 09:55 Troponin/CKMB CK-MB (CK-2) 1.0 ng/mL (0-6.6) 02/25/20 20:18 Troponin I 0.122 ng/mL (< 0.028) H 02/25/20 20:18 - Telemetry Supraventricular conduction: atrial fibrillation - Assessment/Plan Assessment/Plan: 1. s/p Bradycardia - stable; cont. to monitor on tele 2. COVID-19 PNA - on high flow oxygen 3. Chronic Afib - well controlled HR; on Coreg and Diltiazem; On ASA 81mg qd due to high risk of fall and hx of chronic gastric ulcer with perforation 4. HTN - stable 5. CKD 6. Hypothyroidism 7. HLD 8. COPD with home O2 (sat 84-88% at home) MAR reviewed Records reviewed. HR is better. I agree with the a/P by the [employer]. Afib. is asymptomatic.. continue present cardiac meds.If the HR is consistently , <60 bpm then then decrease diltiazem. milvia
[2020-03-04] MEDS: Levothyroxine Sodium 75 MCG TAB PO SCH (05:03)
[2020-03-04] MEDS: Albuterol 200 PUFF (6.7GM INHALER) INH SCH ×4 (06:03→19:31)
[2020-03-04] MEDS: Mometasone 200 MCG/Formoterol 5 MCG 120 PUFF INHALER INH SCH ×2 (06:04→19:31)
[2020-03-04 08:52] LABS: #Basophils 0.1 thou/uL (0.0-0.2); #Lymphocytes 0.3 thou/uL (1.20-3.40); #Monocytes 0.5 thou/uL (0.11-0.59); #Neutrophils 11.1 thou/uL (1.40-6.50); %Basophils 0.6 % (0.0-1.0); %Lymphocytes 2.1 % (21.0-51.0); %Monocytes 4.3 % (0.0-10.0); Mean Corpuscular HGB CONC 31.3 g/dL (32.0-36.0); Mean Corpuscular Hemoglobin 27.7 pg (27.0-31.0); Mean Corpuscular Volume 88.4 fL (78.0-98.0); Mean Platelet Volume 9.8 fL (7.4-10.4); Platelet Count 172 thou/uL (130-400); RBC Distribution Width 16.8 % (11.5-14.5); Red Blood Cell (RBC) Count 4.34 mill/uL (4.20-5.40)
[2020-03-04] MEDS: methylPREDNISolone Sod Succ/PF 125 MG/2 ML VIAL IVP SCH ×2 (08:55→19:29)
[2020-03-04] MEDS: Doxycycline 100 MG CAP PO SCH (08:55)
[2020-03-04] MEDS: Ascorbic Acid 500 mg Chewable Tablet PO SCH (08:56)
[2020-03-04] MEDS: Calcitriol 0.25 MCG CAP PO SCH (08:56)
[2020-03-04] MEDS: Ergocalciferol 1.25 MG(50,000 UNITS) CAP PO SCH (08:56)
[2020-03-04] MEDS: Furosemide 80 MG TAB PO SCH (08:56)
[2020-03-04] MEDS: Folic Acid/Vit B Comp W-C PO SCH (08:56)
[2020-03-04] MEDS: Aspirin 81 mg Enteric Coated Tablet PO SCH (08:56)
[2020-03-04] MEDS: Heparin 5,000 UNITS/ML VIAL SC SCH ×2 (08:57→19:29)
[2020-03-04] MEDS: Carvedilol 25 MG TAB PO SCH ×2 (08:57→19:29)
[2020-03-04] MEDS: Cefepime 1 GM in Sodium Chloride 0.9% 100 ML IVPB SCH (08:57)
[2020-03-04] MEDS ORDERED: Furosemide 80 MG TAB PO SCH (09:00)
[2020-03-04 09:17] LABS: Anion Gap 14 mmol/L (10-20); BUN (Urea Nitrogen) 54 mg/dL (9.8-20.1); Calc. Creatinine Clearance 40 mL/min (70-130); Calcium 9.1 mg/dL (7.8-10.44); Carbon Dioxide 24 mmol/L (23-31); Chloride 108 mmol/L (98-107); Estimated GFR-MDRD 53; Glucose 168 mg/dL (83-110); Potassium 3.5 mmol/L (3.5-5.1); Sodium 142 mmol/L (136-145)
[2020-03-04] MEDS: traMADol HCl 50 MG TAB PO PRN ×2 (09:29→22:35)
--- NOTE | 2020-03-04 11:36 | PRG ---
DATE OF SERVICE: 03/04/2020 SUBJECTIVE: Kareen Machuca remains in the MICU, on high-flow, 81% FiO2. OBJECTIVE: VITAL SIGNS: Sats are still 90, respiratory rate 18, temperature 97, pulse 102, blood pressure 132/76. Spoke to the nurse. She is still lying in bed. CHEST: Decreased breath sounds. No wheezing. CARDIAC: Normal S1, S2. No gallops. ABDOMEN: Soft. No masses. IMPRESSION: Congestive heart failure, elevated BNP, coronavirus pneumonia, underlying fibrosis. Continue steroids, supportive care, neb treatments. Cardiac care, diuretics. Prognosis is guarded. Job ID: [id number]
--- NOTE | 2020-03-04 13:44 | PDOC.CPN ---
- Subjective Date: 03/04/20 Time: 10:00 Interval history: This is Chart review due to COVID 19; No overnight events. Discussed with the pt over the phone today. She denied CP, dizziness or other cardiac complaints - Objective Allergies/Adverse Reactions: Allergies Allergy/AdvReac Type Severity Reaction Status Date / Time No Known Allergies Allergy Verified 11/28/19 16:49 Visit Medications: Current Medications Acetaminophen (Tylenol) 650 mg PO Q4H PRN PRN Reason: Headache/Fever/Mild Pain (1-3) Last Admin: 03/01/20 05:50 Dose: 650 mg Albuterol Sulfate (Proventil Hfa) 2 puff INH [id number] [facility] Last Admin: 03/04/20 06:03 Dose: 2 puff Ascorbic Acid (Vitamin C) 1,000 mg PO DAILY [facility] Last Admin: 03/04/20 08:56 Dose: 1,000 mg Aspirin (Ecotrin) 81 mg PO DAILY [facility] Last Admin: 03/04/20 08:56 Dose: 81 mg Bisacodyl (Dulcolax) 10 mg PO DAILYPRN PRN PRN Reason: Constipation Calcitriol (Rocaltrol) 0.25 mcg PO DAILY [facility] Last Admin: 03/04/20 08:56 Dose: 0.25 mcg Carvedilol (Coreg) 25 mg PO BID [facility] Last Admin: 03/04/20 08:57 Dose: 25 mg Diltiazem HCl (Cardizem Cd) 240 mg PO 1800 [facility] Last Admin: 03/03/20 19:05 Dose: Not Given Diphenoxylate HCl/Atropine (Lomotil) 1 tab PO QIDPRN PRN PRN Reason: Diarrhea/Loose Stools Last Admin: 02/28/20 14:34 Dose: 1 tab Ergocalciferol (Drisdol) 1.25 mg PO DAILY [facility] Last Admin: 03/04/20 08:56 Dose: 1.25 mg Furosemide (Lasix) 40 mg PO DAILY [facility] Last Admin: 03/04/20 08:56 Dose: 40 mg Heparin Sodium (Porcine) (Heparin) 5,000 units SC BID [facility] Last Admin: 03/04/20 08:57 Dose: 5,000 units Levothyroxine Sodium (Synthroid) 75 mcg PO 0600 [facility] Last Admin: 03/04/20 05:03 Dose: 75 mcg Methylprednisolone Sodium Succinate (Solu-Medrol) 40 mg IVP BID [facility] Last Admin: 03/04/20 08:55 Dose: 40 mg Mometasone Furoate/Formoterol Fumar (Dulera 200 Mcg/5 Mcg Inhaler) 2 puff INH BID-RT [facility] Last Admin: 03/04/20 06:04 Dose: Not Given Pantoprazole Sodium (Protonix) 40 mg PO BID [facility] Last Admin: 03/04/20 08:56 Dose: 40 mg Senna/Docusate Sodium (Senokot S) 2 tab PO BID PRN PRN Reason: Constipation Sodium Chloride (Flush - Normal Saline) 10 ml IVF Q12HR [facility] Last Admin: 03/04/20 09:00 Dose: 10 ml Sodium Chloride (Flush - Normal Saline) 10 ml IVF PRN PRN PRN Reason: Saline Flush Tramadol HCl (Ultram) 50 mg PO Q6H PRN PRN Reason: PAIN 4-6 Last Admin: 03/04/20 09:29 Dose: 50 mg Vitamin B Complex/Vit C/Folic Acid (Nephro-John Tablet) 1 tab PO DAILY [facility] Last Admin: 03/04/20 08:56 Dose: 1 tab Vital Signs & Weight: Vital Signs Temp Pulse Resp BP BP Pulse Ox 03/04/20 11:48 98.0 F 87 25 H 134/66 91 L 03/04/20 09:09 97.6 F 102 H 18 132/76 89 L 03/04/20 08:44 92 L 03/04/20 08:00 89 L 03/04/20 05:16 92 L 03/04/20 03:30 97.8 F 78 22 H 128/74 92 L Admit Weight 125 lb Weight 126 lb 6.4 oz - Labs Result Diagrams: 03/04/20 08:45 03/04/20 08:45 Troponin/CKMB CK-MB (CK-2) 1.0 ng/mL (0-6.6) 02/25/20 20:18 Troponin I 0.122 ng/mL (< 0.028) H 02/25/20 20:18 - Telemetry Supraventricular conduction: atrial fibrillation - Assessment/Plan Assessment/Plan: 1. S/p Bradycardia - stable; cont. to monitor on tele 2. COVID-19 PNA - on high flow oxygen 3. Chronic Afib - well controlled HR; on Coreg and Diltiazem; On ASA 81mg qd due to high risk of fall and hx of chronic gastric ulcer with perforation 4. HTN - stable 5. CKD 6. Hypothyroidism 7. HLD 8. COPD with home O2 (sat 84-88% at home) MAR reviewed * Dr Walters pt Chart reviewed.Cardiac status is stable with chronic atrial fibrillation. I agree with the plan as noted above. I will sign off. If any cardiac changes please consult me again. thank you. milvia
--- NOTE | 2020-03-04 17:00 | PDOC.HOSPP ---
- Subjective Encounter Date: 03/04/20 Encounter Time: 16:57 Subjective: Ms. Machuca was seen today in follow-up of COVID pneumonia and respiratory failure. She is beginning to become frustrated with being in the hospital. She does not feel any better. - Objective Vital Signs & Weight: Vital Signs (12 hours) Temp Pulse Resp BP BP Pulse Ox Pulse Ox 03/04/20 15:32 97.8 F 78 24 H 140/90 91 L 03/04/20 11:48 98.0 F 87 25 H 134/66 91 L 03/04/20 11:38 03/04/20 11:15 91 L 03/04/20 09:09 97.6 F 102 H 18 132/76 89 L 03/04/20 08:44 92 L 03/04/20 08:00 89 L 03/04/20 05:16 92 L Pulse Ox 03/04/20 15:32 03/04/20 11:48 03/04/20 11:38 92 L 03/04/20 11:15 94 L 03/04/20 09:09 03/04/20 08:44 03/04/20 08:00 03/04/20 05:16 Weight Admit Weight 125 lb Weight 126 lb 6.4 oz Most Recent Monitor Data Heart Rate from ECG 103 NIBP 130/74 NIBP BP-Mean 92 Respiration from ECG 11 SpO2 91 I&O: 03/03/20 03/04/20 03/05/20 06:59 06:59 06:59 Intake Total 1080 1190 Output Total 1875 1700 Balance -795 -261 Result Diagrams: 03/04/20 08:45 03/04/20 08:45 Hospitalist ROS - Medication Medications: Active Medications Generic Name Dose Route Start Last Admin Trade Name Freq PRN Reason Stop Dose Admin Acetaminophen 650 mg 02/25/20 14:04 03/01/20 05:50 Tylenol PO 650 mg Q4H PRN Administration Headache/Fever/Mild Pain (1-3) Albuterol Sulfate 2 puff 02/26/20 19:00 03/04/20 15:28 Proventil Hfa INH Not Given [id number] EDGARDO Ascorbic Acid 1,000 mg 03/01/20 09:00 03/04/20 08:56 Vitamin C PO 1,000 mg DAILY EDGARDO Administration Aspirin 81 mg 02/26/20 09:00 06/24/20 08:56 Ecotrin PO 81 mg DAILY EDGARDO Administration Calcitriol 0.25 mcg 02/26/20 09:00 03/04/20 08:56 Rocaltrol PO 0.25 mcg DAILY EDGARDO Administration Carvedilol 25 mg 02/29/20 21:00 03/04/20 08:57 Coreg PO 25 mg BID EDGARDO Administration Diltiazem HCl 240 mg 02/29/20 18:00 03/03/20 19:05 Cardizem Cd PO Not Given 1800 [facility] Diphenoxylate HCl/Atropine 1 tab 02/27/20 10:43 02/28/20 14:34 Lomotil PO 1 tab QIDPRN PRN Administration Diarrhea/Loose Stools Ergocalciferol 1.25 mg 02/26/20 09:00 03/04/20 08:56 Drisdol PO 1.25 mg DAILY EDGARDO Administration Furosemide 40 mg 03/04/20 09:00 03/04/20 08:56 Lasix PO 40 mg DAILY EDGARDO Administration Heparin Sodium (Porcine) 5,000 units 02/25/20 21:00 03/04/20 08:57 Heparin SC 5,000 units BID EDGARDO Administration Levothyroxine Sodium 75 mcg 02/26/20 06:00 03/04/20 05:03 Synthroid PO 75 mcg 0600 [facility] Administration Methylprednisolone Sodium Succinate 40 mg 03/02/20 21:00 03/04/20 08:55 Solu-Medrol IVP 40 mg BID EDGARDO Administration Mometasone Furoate/Formoterol Fumar 2 puff 02/27/20 18:30 03/04/20 06:04 Dulera 200 Mcg/5 Mcg Inhaler INH Not Given BID-RT EDGARDO Pantoprazole Sodium 40 mg 02/29/20 21:00 03/04/20 08:56 Protonix PO 40 mg BID EDGARDO Administration Sodium Chloride 10 ml 02/25/20 21:00 03/04/20 09:00 Flush - Normal Saline IVF 10 ml Q12HR EDGARDO Administration Tramadol HCl 50 mg 02/27/20 10:42 03/04/20 09:29 Ultram PO 50 mg Q6H PRN Administration PAIN 4-6 Vitamin B Complex/Vit C/Folic Acid 1 tab 03/01/20 09:00 03/04/20 08:56 Nephro-John Tablet PO 1 tab DAILY EDGARDO Administration - Exam Eye: PERRL Heart: RRR, no murmur, no gallops, no rubs, normal peripheral pulses Respiratory: rales (+ rales throughout, mild expiratory wheeze) Gastrointestinal: soft, non-tender, non-distended, normal bowel sounds, no palpable masses Extremities: no cyanosis, no edema Hosp A/P (1) Acute respiratory failure with hypoxemia Code(s): J96.01 - ACUTE RESPIRATORY FAILURE WITH HYPOXIA Status: Acute (2) Pneumonia due to COVID-19 virus Code(s): U07.1 - COVID-19; J12.89 - OTHER VIRAL PNEUMONIA Status: Acute (3) Atrial fibrillation Code(s): I48.91 - UNSPECIFIED ATRIAL FIBRILLATION Status: Acute (4) Hypertension Code(s): I10 - ESSENTIAL (PRIMARY) HYPERTENSION Status: Acute (5) Hypothyroidism Code(s): E03.9 - HYPOTHYROIDISM, UNSPECIFIED Status: Acute - Plan * COVID pneumonia- continue symptomatic and supportive management- discussed with the patient her concerns. Discussed with Dr. Ponce and Dr. Bedolla * Continue high flow oxygen * COPD with Chronic respiratory failure- * She was evaluated by Pulmonary- will defer those recommendations * Continue high flow oxygen and wean as tolerated * AFIB- stable * Hypothyroidism- stable * Continue to monitor in the hospital * Continue PT/OT
--- NOTE | 2020-03-04 17:12 | PQF ---
JAIMIE FLETCHER TONI MD [id number] [facility]-243 [id number] CLINICAL DOCUMENTATION IMPROVEMENT CLARIFICATION FORM: ICD-10 Updated PLEASE DO AN ADDENDUM TO THE PROGRESS NOTE WITH ANY DOCUMENTATION UPDATES OR ADDITIONS AND CARRY THROUGH TO DC SUMMARY. THANK YOU. DATE: 03/04/2020 , ATTN:DR. David ARTIS Please exercise your independent, professional judgment in responding to the clarification form. Clinical indicators are provided on the bottom of this form for your review. Please check appropriate box(s): CONGESTIVE HEART FAILURE: A. ACUITY [ ] Acute [ ] Acute on Chronic [ ] Chronic B. TYPE [ ] Systolic / HFrEF [ ] Diastolic / HFpEF [ ] Combined Systolic / Diastolic [ ] Other diagnosis [ X] Unable to determine Not able to get Echo due to COVID positive, and there is no recent echo in the system In addition, please specify: Present on Admission (POA): [ ] Yes [ ] No [ ] Unable to determine For continuity of documentation, please document condition throughout progress notes and discharge summary. Thank You. CLINICAL INDICATORS - SIGNS / SYMPTOMS / LABS / RESULTS AND LOCATION IN EMR 02/24 BNP 2521.0 03/02 BNP 1110.4 02/24 ED REPORT: PRESENTS FOR WORSENING SOB, P 148, R 32/ 75% RA > 94% HI VENESSA/ BP 62/35, ED PHYSICIAN FINAL DX : FINAL SEPTIC SHOCK W WONG VIRUS, AFIB W RVR , HYPOXIA, INDETERMINATE TROPONIN, SEVERE CHF 02/24 H&P ( GURUSAMY) HPI: 79 YEAR OLD FEMALE ADMITTED FOR POTENTIAL CHF EXACERBATION. HOWEVER, SHE WAS RULED IN POSITIVE FOR COVID AT PRIMARY CARE PHYSICIAN'S OFFICE. IMPRESSION AND PLAN: CONGESTIVE HEART FAILURE EXACERBATION 02/25 PN (RYAN ) IMPRESSION: CONGESTIVE HEART FAILURE 03/02 CONSULT () PMH: POSSIBLE CONGESTIVE HEART FAILURE 03/03 PN (RYAN) IMPRESSION: SUPERIMPOSED CONGESTIVE HEART FAILURE 03/04 PN ( RYAN) IMPRESSION: CONGESTIVE HEART FAILURE, ELEVATED BNP RISK: ADVANCED AGE ( 79), ACUTE RESPIRATORY FAILURE, (GURUSAMY /H&P) 02/24 TREATMENT CARDIOLOGY CONSULT (/ CONSULT ) 03/02 SUPPLEMENTAL OXYGEN ( 02/24 - PRESENT) THANK YOU! DEE (This form is maintained as a part of the permanent medical record) 2014 [employer]. All Rights Reserved [email or web address] [facility]
--- NOTE | 2020-03-04 17:53 | PRG ---
DATE OF SERVICE: 03/04/2020 SUBJECTIVE: Ms. Machuca is kind of anxious to go home. She was feeling despondent that she is not getting better and she also has had some issues with her high-flow nasal cannula O2 humidifier bag, which sometimes gets empty and that causes her nasal pain. She is still dyspneic at rest and denies any chest pain. No abdominal pain. No diarrhea. No genitourinary symptoms. She is on high-flow O2 at 60 flow rate and the O2 sats are 91. The lowest O2 sats that we recorded here were 86 yesterday at 3 p.m. The patient has been steadily at 60 since March 02 in terms of high-flow nasal cannula supply. OBJECTIVE: GENERAL: She does not appear in acute distress. She is little bit tachypneic. She is oriented. LUNGS: Symmetric air entry. A few crackles here and there. No wheezing. HEART: S1 and S2, regular rate. ABDOMEN: Soft, not distended or tender. EXTREMITIES: Moves extremities equally. LABORATORY DATA: WBC count 12,000, hemoglobin 12, and platelets 172 with 92% neutrophils. D-dimer started at 1.27 and now is 2.07. The ferritin was 1900, went up to 3400, now is at 2700. CRP started 25, now is down to 10. MEDICATIONS: She is currently on, 1. Vitamin C. 2. Rocaltrol. 3. Coreg. 4. Diltiazem. 5. Drisdol. 6. Lasix. 7. Levothyroxine. 8. Medrol 40 b.i.d. ASSESSMENT/DISCUSSION: Severe COVID pneumonia, chronic obstructive pulmonary disease, persisting high-flow nasal cannula requirement to keep the marginal O2 saturation. This is going to be a difficult situation for her with high risk of poor outcome, but I explained to her that sometimes it may take weeks before the patient get to a point where they can be discharged and she seems to have understood that. Job ID: [id number]
[2020-03-05] MEDS: Levothyroxine Sodium 75 MCG TAB PO SCH (03:56)
[2020-03-05] MEDS: Albuterol 200 PUFF (6.7GM INHALER) INH SCH ×4 (06:07→19:45)
[2020-03-05] MEDS: Calcitriol 0.25 MCG CAP PO SCH (08:59)
[2020-03-05] MEDS: Ergocalciferol 1.25 MG(50,000 UNITS) CAP PO SCH (08:59)
[2020-03-05] MEDS: Aspirin 81 mg Enteric Coated Tablet PO SCH (08:59)
[2020-03-05] MEDS: Heparin 5,000 UNITS/ML VIAL SC SCH ×2 (08:59→19:45)
[2020-03-05] MEDS: Ascorbic Acid 500 mg Chewable Tablet PO SCH (08:59)
[2020-03-05] MEDS: Carvedilol 25 MG TAB PO SCH ×2 (09:00→19:45)
[2020-03-05] MEDS: methylPREDNISolone Sod Succ/PF 125 MG/2 ML VIAL IVP SCH (09:00)
[2020-03-05] MEDS: Furosemide 80 MG TAB PO SCH (09:00)
[2020-03-05] MEDS: Folic Acid/Vit B Comp W-C PO SCH (09:00)
[2020-03-05] MEDS: ANORO INH SCH (09:04)
[2020-03-05] MEDS ORDERED: Doxycycline 100 MG CAP PO SCH (09:30)
--- NOTE | 2020-03-05 14:56 | PDOC.HOSPP ---
- Subjective Encounter Date: 03/05/20 Encounter Time: 14:55 Subjective: Ms. Machuca was seen today in follow-up of COVID pneumonia and respiratory failure. She appears a bit more dyspneic, otherwise ok. - Objective Vital Signs & Weight: Vital Signs (12 hours) Temp Pulse Resp BP Pulse Ox 03/05/20 12:00 97.9 F 75 32 H 114/75 90 L 03/05/20 11:30 92 L 03/05/20 08:59 92 L 03/05/20 08:00 97.8 F 80 24 H 116/74 92 L 03/05/20 04:00 97.5 F L 73 25 H 105/63 86 L Weight Admit Weight 125 lb Weight 127 lb 11.2 oz Most Recent Monitor Data Heart Rate from ECG 103 NIBP 130/74 NIBP BP-Mean 92 Respiration from ECG 11 SpO2 91 I&O: 03/04/20 03/05/20 03/06/20 06:59 06:59 06:59 Intake Total 1190 500 Output Total 1700 550 Balance -510 -50 Result Diagrams: 03/04/20 08:45 03/04/20 08:45 Hospitalist ROS - Medication Medications: Active Medications Generic Name Dose Route Start Last Admin Trade Name Freq PRN Reason Stop Dose Admin Acetaminophen 650 mg 02/25/20 14:04 03/01/20 05:50 Tylenol PO 650 mg Q4H PRN Administration Headache/Fever/Mild Pain (1-3) Albuterol Sulfate 2 puff 02/26/20 19:00 03/05/20 13:08 Proventil Hfa INH 2 puff [id number] EDGARDO Administration Ascorbic Acid 1,000 mg 03/01/20 09:00 03/05/20 08:59 Vitamin C PO 1,000 mg DAILY EDGARDO Administration Aspirin 81 mg 02/26/20 09:00 03/05/20 08:59 Ecotrin PO 81 mg DAILY EDGARDO Administration Calcitriol 0.25 mcg 02/26/20 09:00 03/05/20 08:59 Rocaltrol PO 0.25 mcg DAILY EDGARDO Administration Carvedilol 25 mg 02/29/20 21:00 03/05/20 09:00 Coreg PO 25 mg BID EDGARDO Administration Diltiazem HCl 240 mg 02/29/20 18:00 03/04/20 17:58 Cardizem Cd PO 240 mg 1800 EDGARDO Administration Diphenoxylate HCl/Atropine 1 tab 02/27/20 10:43 02/28/20 14:34 Lomotil PO 1 tab QIDPRN PRN Administration Diarrhea/Loose Stools Ergocalciferol 1.25 mg 02/26/20 09:00 03/05/20 08:59 Drisdol PO 1.25 mg DAILY EDGARDO Administration Furosemide 40 mg 03/04/20 09:00 03/05/20 09:00 Lasix PO 40 mg DAILY EDGARDO Administration Heparin Sodium (Porcine) 5,000 units 02/25/20 21:00 03/05/20 08:59 Heparin SC 5,000 units BID EDGARDO Administration Levothyroxine Sodium 75 mcg 02/26/20 06:00 03/05/20 03:56 Synthroid PO 75 mcg 0600 EDGARDO Administration Pantoprazole Sodium 40 mg 02/29/20 21:00 03/05/20 09:00 Protonix PO 40 mg BID EDGARDO Administration Anoro 62.5 Mcg/25 1 each 03/05/20 09:00 03/05/20 09:04 Mcg Inh INH 1 each DAILY EDGARDO Administration Sodium Chloride 10 ml 02/25/20 21:00 03/05/20 09:02 Flush - Normal Saline IVF 10 ml Q12HR EDGARDO Administration Tramadol HCl 50 mg 02/27/20 10:42 03/04/20 22:35 Ultram PO 50 mg Q6H PRN Administration PAIN 4-6 Vitamin B Complex/Vit C/Folic Acid 1 tab 03/01/20 09:00 03/05/20 09:00 Nephro-John Tablet PO 1 tab DAILY EDGARDO Administration - Exam Eye: PERRL, anicteric sclera Heart: RRR, no murmur, no gallops, no rubs, normal peripheral pulses Respiratory: rales ( basilar rales as well as some expiratory wheeze) Gastrointestinal: soft, non-tender, non-distended, normal bowel sounds, no palpable masses, no hepatomegaly Extremities: no cyanosis, no edema Hosp A/P (1) Acute respiratory failure with hypoxemia Code(s): J96.01 - ACUTE RESPIRATORY FAILURE WITH HYPOXIA Status: Acute (2) Pneumonia due to COVID-19 virus Code(s): U07.1 - COVID-19; J12.89 - OTHER VIRAL PNEUMONIA Status: Acute (3) Atrial fibrillation Code(s): I48.91 - UNSPECIFIED ATRIAL FIBRILLATION Status: Acute (4) Hypertension Code(s): I10 - ESSENTIAL (PRIMARY) HYPERTENSION Status: Acute (5) Hypothyroidism Code(s): E03.9 - HYPOTHYROIDISM, UNSPECIFIED Status: Acute - Plan * COVID pneumonia- continue symptomatic and supportive management- * Continue high flow oxygen and she will be placed on a trail of convalesce serum * COPD with Chronic respiratory failure- * AFIB- stable * Hypothyroidism- stable * Continue to monitor in the hospital * Continue PT/OT
--- NOTE | 2020-03-05 15:03 | PRG ---
DATE OF SERVICE: 03/05/2020 SUBJECTIVE: This morning, pulse 97, sats 97%, respiratory rate 25, 02 sat 86% on FIO2 90% and 60% high flow, blood pressure 105/63. I's and O's have been consistently negative. Awake, responsive. OBJECTIVE: CHEST: No wheezing or crackles. CARDIAC: Normal S1 and S2. No gallops. ABDOMEN: No masses. ASSESSMENT AND PLAN: Respiratory failure multifactorial, combination of coronavirus pneumonia, pulmonary fibrosis, chronic obstructive pulmonary disease, superimposed congestive heart failure. We will switch her to oral medication, prednisone, doxycycline, convalescent plasma 1 bag. Once we can titrate FiO2, she can be discharged home. Unfortunately, she needs a minimum oxygen saturation of 88% to 90%. Job ID: [id number]
[2020-03-05] MEDS: traMADol HCl 50 MG TAB PO PRN (16:33)
[2020-03-05] MEDS ORDERED: HYDROcodone/Acetaminophen 5/325 mg Tablet PO PRN (18:46)
[2020-03-05] MEDS: Doxycycline 100 MG CAP PO SCH (19:45)
[2020-03-06] MEDS: Levothyroxine Sodium 75 MCG TAB PO SCH (03:57)
[2020-03-06] MEDS: Carvedilol 25 MG TAB PO SCH ×2 (09:21→19:53)
[2020-03-06] MEDS: Folic Acid/Vit B Comp W-C PO SCH (09:21)
[2020-03-06] MEDS: predniSONE 20 MG TAB PO SCH (09:21)
[2020-03-06] MEDS: Calcitriol 0.25 MCG CAP PO SCH (09:21)
[2020-03-06] MEDS: Doxycycline 100 MG CAP PO SCH ×2 (09:21→19:54)
[2020-03-06] MEDS: Ascorbic Acid 500 mg Chewable Tablet PO SCH ×2 (09:21→09:59)
[2020-03-06] MEDS: Heparin 5,000 UNITS/ML VIAL SC SCH ×2 (09:22→19:52)
[2020-03-06] MEDS: Furosemide 80 MG TAB PO SCH (09:22)
[2020-03-06] MEDS: Aspirin 81 mg Enteric Coated Tablet PO SCH (09:22)
[2020-03-06] MEDS: Albuterol 200 PUFF (6.7GM INHALER) INH SCH ×4 (09:23→18:30)
[2020-03-06] MEDS: ANORO INH SCH (09:24)
[2020-03-06] MEDS: Ergocalciferol 1.25 MG(50,000 UNITS) CAP PO SCH (09:27)
[2020-03-06 09:29] LABS: #Lymphocytes 0.3 thou/uL (1.20-3.40); #Monocytes 0.8 thou/uL (0.11-0.59); #Neutrophils 11.2 thou/uL (1.40-6.50); %Basophils 0.4 % (0.0-1.0); %Eosinophils 0.1 % (0.0-10.0); %Lymphocytes 2.5 % (21.0-51.0); %Monocytes 6.3 % (0.0-10.0); %Neutrophils 90.8 % (42.0-75.0); Hemoglobin 12.7 g/dL (12.0-16.0); Mean Corpuscular Hemoglobin 27.8 pg (27.0-31.0); Mean Corpuscular Volume 89.7 fL (78.0-98.0); Mean Platelet Volume 10.1 fL (7.4-10.4); Platelet Count 164 thou/uL (130-400); Red Blood Cell (RBC) Count 4.59 mill/uL (4.20-5.40); White Blood Cell (WBC) Count 12.4 thou/uL (4.8-10.8)
[2020-03-06 09:56] LABS: Anion Gap 14 mmol/L (10-20); BUN (Urea Nitrogen) 63 mg/dL (9.8-20.1); Calc. Creatinine Clearance 38 mL/min (70-130); Calcium 9.3 mg/dL (7.8-10.44); Carbon Dioxide 22 mmol/L (23-31); Chloride 112 mmol/L (98-107); Estimated GFR-MDRD 50; Glucose 140 mg/dL (83-110); Potassium 3.3 mmol/L (3.5-5.1); Sodium 145 mmol/L (136-145)
--- NOTE | 2020-03-06 12:55 | PRG ---
DATE OF SERVICE: 03/06/2020 SUBJECTIVE: Kareen Machuca is an 79-year-old female, remains in the hospital. OBJECTIVE: VITAL SIGNS: Temperature 98, respiratory rate 24. Saturations 98% on high-flow at 60, FiO2 of 94%. Blood pressure 120/76. CHEST: No wheezing, no crackles. CARDIAC: Normal S1 and S2. No gallops. ABDOMEN: No masses. ASSESSMENT AND PLAN: Respiratory failure, underlying congestive heart failure, fibrosis, coronavirus positive pneumonia. The patient is not getting better like we would expect. In spite of getting diuretics and steroids, she is getting convalescent plasma today. Overall prognosis is grave. She does not want to be intubated. We will follow. Job ID: [id number]
--- NOTE | 2020-03-06 16:38 | PDOC.HOSPP ---
- Subjective Encounter Date: 03/06/20 Encounter Time: 16:36 Subjective: Ms. Machuca was seen today in follow-up of COVID-19 pneumonia. She says she is more short of breath today. She is now on 100% high flow oxygen. Dr. Ponce has been notified. - Objective Vital Signs & Weight: Vital Signs (12 hours) Temp Pulse Pulse Resp BP BP BP 03/06/20 11:55 117/71 03/06/20 11:35 97.8 F 85 24 H 117/71 03/06/20 10:25 98.0 F 80 24 H 124/76 03/06/20 09:50 97.7 F 94 28 H 124/86 03/06/20 09:43 97.7 F 94 28 H 124/86 03/06/20 08:20 Pulse Ox Pulse Ox Pulse Ox 03/06/20 11:55 88 L 88 L 03/06/20 11:35 91 L 03/06/20 10:25 91 L 03/06/20 09:50 90 L 03/06/20 09:43 90 L 03/06/20 08:20 91 L Weight Admit Weight 125 lb Weight 127 lb 4.8 oz Most Recent Monitor Data Heart Rate from ECG 103 NIBP 130/74 NIBP BP-Mean 92 Respiration from ECG 11 SpO2 91 I&O: 03/05/20 03/06/20 03/07/20 06:59 06:59 06:59 Intake Total 500 60 240 Output Total 550 500 Balance -50 -440 240 Result Diagrams: 03/06/20 09:16 03/06/20 09:16 Hospitalist ROS - Medication Medications: Active Medications Generic Name Dose Route Start Last Admin Trade Name Freq PRN Reason Stop Dose Admin Acetaminophen 650 mg 02/25/20 14:04 03/01/20 05:50 Tylenol PO 650 mg Q4H PRN Administration Headache/Fever/Mild Pain (1-3) Albuterol Sulfate 2 puff 02/26/20 19:00 03/06/20 13:45 Proventil Hfa INH 2 puff [id number] EDGARDO Administration Ascorbic Acid 1,000 mg 03/01/20 09:00 03/06/20 09:59 Vitamin C PO Not Given DAILY EDGARDO Aspirin 81 mg 02/26/20 09:00 03/06/20 09:22 Ecotrin PO 81 mg DAILY EDGARDO Administration Calcitriol 0.25 mcg 02/26/20 09:00 03/06/20 09:21 Rocaltrol PO 0.25 mcg DAILY EDGARDO Administration Carvedilol 25 mg 02/29/20 21:00 03/06/20 09:21 Coreg PO 25 mg BID EDGARDO Administration Diltiazem HCl 240 mg 02/29/20 18:00 03/05/20 17:36 Cardizem Cd PO 240 mg 1800 EDGARDO Administration Diphenoxylate HCl/Atropine 1 tab 02/27/20 10:43 02/28/20 14:34 Lomotil PO 1 tab QIDPRN PRN Administration Diarrhea/Loose Stools Doxycycline Hyclate 100 mg 03/05/20 21:00 03/06/20 09:21 Vibramycin PO 03/12/20 09:01 100 mg BID EDGARDO Administration Ergocalciferol 1.25 mg 02/26/20 09:00 03/06/20 09:27 Drisdol PO 1.25 mg DAILY EDGARDO Administration Furosemide 40 mg 03/04/20 09:00 03/06/20 09:22 Lasix PO 40 mg DAILY EDGARDO Administration Heparin Sodium (Porcine) 5,000 units 02/25/20 21:00 03/06/20 09:22 Heparin SC 5,000 units BID EDGARDO Administration Levothyroxine Sodium 75 mcg 02/26/20 06:00 03/06/20 03:57 Synthroid PO 75 mcg 0600 EDGARDO Administration Pantoprazole Sodium 40 mg 02/29/20 21:00 03/06/20 09:22 Protonix PO 40 mg BID EDGARDO Administration Anoro 62.5 Mcg/25 1 each 03/05/20 09:00 03/06/20 09:24 Mcg Inh INH 1 each DAILY EDGARDO Administration Prednisone 40 mg 03/06/20 08:00 03/06/20 09:21 Prednisone PO 40 mg QAM-WM EDGARDO Administration Sodium Chloride 10 ml 02/25/20 21:00 03/06/20 09:23 Flush - Normal Saline IVF 10 ml Q12HR EDGARDO Administration Tramadol HCl 50 mg 02/27/20 10:42 03/05/20 16:33 Ultram PO 50 mg Q6H PRN Administration PAIN 4-6 Vitamin B Complex/Vit C/Folic Acid 1 tab 03/01/20 09:00 03/06/20 09:21 Nephro-John Tablet PO 1 tab DAILY EDGARDO Administration - Exam Eye: PERRL, anicteric sclera Heart: RRR, no murmur, no gallops Respiratory: rales (essentially throughout) Gastrointestinal: soft, non-tender, non-distended, normal bowel sounds Extremities: no cyanosis, 1+ LE edema Hosp A/P (1) Acute respiratory failure with hypoxemia Code(s): J96.01 - ACUTE RESPIRATORY FAILURE WITH HYPOXIA Status: Acute (2) Pneumonia due to COVID-19 virus Code(s): U07.1 - COVID-19; J12.89 - OTHER VIRAL PNEUMONIA Status: Acute (3) Atrial fibrillation Code(s): I48.91 - UNSPECIFIED ATRIAL FIBRILLATION Status: Acute (4) Hypertension Code(s): I10 - ESSENTIAL (PRIMARY) HYPERTENSION Status: Acute (5) Hypothyroidism Code(s): E03.9 - HYPOTHYROIDISM, UNSPECIFIED Status: Acute - Plan * COVID pneumonia- continue symptomatic and supportive management- * She will receive convalescent serum today * Her respiratory status has become more tenuous. [facility] has recommended transfer to [facility] * She has been started on BiPAP * AFIB- stable * Hypothyroidism- stable * HTN- blood pressure is low normal * Continue to monitor in the hospital * Continue PT/OT
[2020-03-06 17:04] VITALS: BP 115/82
[2020-03-06] MEDS ORDERED: Morphine 2 MG/ML SYRINGE SLOW IVP PRN (19:25)
[2020-03-06] MEDS: Morphine 4 MG/ML VIAL SLOW IVP PRN (19:51)
[2020-03-07] MEDS: Morphine 4 MG/ML VIAL SLOW IVP PRN (00:53)
[2020-03-07] MEDS: Levothyroxine Sodium 75 MCG TAB PO SCH (06:55)
[2020-03-07] MEDS: Albuterol 200 PUFF (6.7GM INHALER) INH SCH ×4 (06:55→18:48)
[2020-03-07] MEDS: Ascorbic Acid 500 mg Chewable Tablet PO SCH (09:33)
[2020-03-07] MEDS: Doxycycline 100 MG CAP PO SCH ×2 (09:33→19:59)
[2020-03-07] MEDS: Carvedilol 25 MG TAB PO SCH ×2 (09:33→19:59)
[2020-03-07] MEDS: Ergocalciferol 1.25 MG(50,000 UNITS) CAP PO SCH (09:33)
[2020-03-07] MEDS: Aspirin 81 mg Enteric Coated Tablet PO SCH (09:33)
[2020-03-07] MEDS: Calcitriol 0.25 MCG CAP PO SCH (09:33)
[2020-03-07] MEDS: predniSONE 20 MG TAB PO SCH (09:33)
[2020-03-07] MEDS: Folic Acid/Vit B Comp W-C PO SCH (09:34)
[2020-03-07] MEDS: ANORO INH SCH (09:34)
[2020-03-07] MEDS: Furosemide 80 MG TAB PO SCH (09:34)
[2020-03-07 09:44] LABS: Anion Gap 16 mmol/L (10-20); BUN (Urea Nitrogen) 84 mg/dL (9.8-20.1); Calc. Creatinine Clearance 28 mL/min (70-130); Calcium 9.3 mg/dL (7.8-10.44); Carbon Dioxide 24 mmol/L (23-31); Chloride 110 mmol/L (98-107); Estimated GFR-MDRD 34; Glucose 122 mg/dL (83-110); Potassium 3.7 mmol/L (3.5-5.1); Sodium 146 mmol/L (136-145)
[2020-03-07] MEDS: Heparin 5,000 UNITS/ML VIAL SC SCH ×2 (10:39→20:00)
--- NOTE | 2020-03-07 12:44 | PRG ---
DATE OF SERVICE: 03/07/2020 SUBJECTIVE: Ms. Machuca has not shown any improvement and remains on BiPAP at 90%. With this, we were barely able to maintain saturations as 90 and often into the upper 80s. OBJECTIVE: VITAL SIGNS: Blood pressure is 115/60, heart rate 75, saturation 88% to 90% on BiPAP, respiratory rate is 19. GENERAL: Shallowed. Mildly labored tachypneic efforts. HEART: Irregular. ABDOMEN: Soft. There is no organomegaly. There is no edema. LABORATORY: Chemistries today include sodium 146, potassium 3.7, chloride 110, CO2 is 24, BUN is 84, creatinine 1.5. Just several days ago, BUN was 44 with creatinine 1. There has not been a repeat x-ray in several days. IMPRESSION: 1. Coronavirus disease pneumonia, not responded to therapy, administered today. The patient does not wish intubation. 2. Atrial fibrillation. 3. Prerenal azotemia, most likely related to poor intake of fluids and nutrition. PLAN: At this point, there is relatively little to offer except continued supportive care with a direction toward palliation. It has been reported that the family is trying to decide whether they wish to go toward inpatient hospice or whether they would like to try to get her home. I am certainly open to either. Job ID: [id number]
--- NOTE | 2020-03-07 15:37 | PDOC.HOSPP ---
- Subjective Encounter Date: 03/07/20 Encounter Time: 15:33 Subjective: Ms. Machuca was seen today in follow-up of respiratory failure due to COVID pneumonia. She appears more fatigued. She notes some dyspnea, and notes some chest discomfort as well. - Objective Vital Signs & Weight: Vital Signs (12 hours) Temp Pulse Resp Pulse Ox 03/07/20 14:44 94 27 H 84 L 03/07/20 08:13 89 L 03/07/20 08:00 90 L 03/07/20 04:00 97.4 F L Weight Admit Weight 125 lb Weight 130 lb 8 oz Most Recent Monitor Data Heart Rate from ECG 83 NIBP 111/67 NIBP BP-Mean 81 Respiration from ECG 19 SpO2 90 I&O: 03/06/20 03/07/20 03/08/20 06:59 06:59 06:59 Intake Total 60 265 Output Total 500 1580 Balance -237 -4140 Result Diagrams: 03/06/20 09:16 03/07/20 09:16 Hospitalist ROS - Medication Medications: Active Medications Generic Name Dose Route Start Last Admin Trade Name Freq PRN Reason Stop Dose Admin Acetaminophen 650 mg 02/25/20 14:04 03/01/20 05:50 Tylenol PO 650 mg Q4H PRN Administration Headache/Fever/Mild Pain (1-3) Albuterol Sulfate 2 puff 02/26/20 19:00 03/07/20 14:59 Proventil Hfa INH Not Given [id number] [facility] Ascorbic Acid 1,000 mg 03/01/20 09:00 03/07/20 09:33 Vitamin C PO Not Given DAILY [facility] Aspirin 81 mg 02/26/20 09:00 03/07/20 09:33 Ecotrin PO Not Given DAILY EDGARDO Calcitriol 0.25 mcg 02/26/20 09:00 03/07/20 09:33 Rocaltrol PO Not Given DAILY EDGARDO Carvedilol 25 mg 02/29/20 21:00 03/07/20 09:33 Coreg PO Not Given BID EDGARDO Diltiazem HCl 240 mg 02/29/20 18:00 03/06/20 17:00 Cardizem Cd PO 240 mg 1800 EDGARDO Administration Diphenoxylate HCl/Atropine 1 tab 02/27/20 10:43 02/28/20 14:34 Lomotil PO 1 tab QIDPRN PRN Administration Diarrhea/Loose Stools Doxycycline Hyclate 100 mg 03/05/20 21:00 03/07/20 09:33 Vibramycin PO 03/12/20 09:01 Not Given BID [facility] Ergocalciferol 1.25 mg 02/26/20 09:00 03/07/20 09:33 Drisdol PO Not Given DAILY [facility] Furosemide 40 mg 03/04/20 09:00 03/07/20 09:34 Lasix PO Not Given DAILY [facility] Heparin Sodium (Porcine) 5,000 units 02/25/20 21:00 03/07/20 10:39 Heparin SC 5,000 units BID [facility] Administration Levothyroxine Sodium 75 mcg 02/26/20 06:00 03/07/20 06:55 Synthroid PO Not Given 0600 [facility] Morphine Sulfate 4 mg 03/06/20 19:25 03/07/20 00:53 Morphine SLOW IVP 4 mg Q4H PRN Administration Moderate to Severe Pain (6-10) Pantoprazole Sodium 40 mg 02/29/20 21:00 03/07/20 09:34 Protonix PO Not Given BID [facility] Anoro 62.5 Mcg/25 1 each 03/05/20 09:00 03/07/20 09:34 Mcg Inh INH Not Given DAILY [facility] Prednisone 40 mg 03/06/20 08:00 03/07/20 09:33 Prednisone PO Not Given QAM-WM [facility] Sodium Chloride 10 ml 02/25/20 21:00 03/07/20 10:40 Flush - Normal Saline IVF 10 ml Q12HR [facility] Administration Tramadol HCl 50 mg 02/27/20 10:42 03/05/20 16:33 Ultram PO 50 mg Q6H PRN Administration PAIN 4-6 Vitamin B Complex/Vit C/Folic Acid 1 tab 03/01/20 09:00 03/07/20 09:34 Nephro-John Tablet PO Not Given DAILY [facility] - Exam Eye: PERRL, anicteric sclera Heart: RRR, no murmur, no gallops, no rubs, normal peripheral pulses Respiratory: rales Gastrointestinal: soft, non-tender, non-distended, normal bowel sounds, no palpable masses, no hepatomegaly Extremities: 1+ LE edema Hosp A/P (1) Acute respiratory failure with hypoxemia Code(s): J96.01 - ACUTE RESPIRATORY FAILURE WITH HYPOXIA Status: Acute (2) Pneumonia due to COVID-19 virus Code(s): U07.1 - COVID-19; J12.89 - OTHER VIRAL PNEUMONIA Status: Acute (3) Atrial fibrillation Code(s): I48.91 - UNSPECIFIED ATRIAL FIBRILLATION Status: Acute (4) Hypertension Code(s): I10 - ESSENTIAL (PRIMARY) HYPERTENSION Status: Acute (5) Hypothyroidism Code(s): E03.9 - HYPOTHYROIDISM, UNSPECIFIED Status: Acute - Plan * COVID pneumonia- continue symptomatic and supportive management- * She is sating in the 80-90's on BiPAP * AFIB- heart rate is variable * Hypothyroidism- stable * HTN- blood pressure is low normal * Unfortunately She is becoming progressively weaker, she may no survive this hospital stay
[2020-03-07] MEDS: Morphine 2 MG/ML SYRINGE SLOW IVP PRN ×2 (16:39→20:03)
[2020-03-08 04:18] LABS: #Lymphocytes 0.5 thou/uL (1.20-3.40); #Monocytes 1.5 thou/uL (0.11-0.59); #Neutrophils 16.5 thou/uL (1.40-6.50); %Lymphocytes 2.8 % (21.0-51.0); %Monocytes 7.9 % (0.0-10.0); %Neutrophils 89.2 % (42.0-75.0); Hemoglobin 13.8 g/dL (12.0-16.0); Mean Corpuscular HGB CONC 30.5 g/dL (32.0-36.0); Mean Corpuscular Hemoglobin 27.9 pg (27.0-31.0); Mean Corpuscular Volume 91.5 fL (78.0-98.0); Mean Platelet Volume 10.5 fL (7.4-10.4); Platelet Count 184 thou/uL (130-400); RBC Distribution Width 17.1 % (11.5-14.5); Red Blood Cell (RBC) Count 4.95 mill/uL (4.20-5.40); White Blood Cell (WBC) Count 18.5 thou/uL (4.8-10.8)
[2020-03-08 04:41] LABS: Anion Gap 21 mmol/L (10-20); BUN (Urea Nitrogen) 100 mg/dL (9.8-20.1); Calc. Creatinine Clearance 23 mL/min (70-130); Calcium 9.8 mg/dL (7.8-10.44); Carbon Dioxide 19 mmol/L (23-31); Chloride 112 mmol/L (98-107); Estimated GFR-MDRD 26; Glucose 79 mg/dL (83-110); Potassium 4.6 mmol/L (3.5-5.1); Sodium 147 mmol/L (136-145)
[2020-03-08] MEDS: Albuterol 200 PUFF (6.7GM INHALER) INH SCH ×4 (06:07→22:42)
[2020-03-08] MEDS: Levothyroxine Sodium 75 MCG TAB PO SCH (06:07)
[2020-03-08] MEDS: Heparin 5,000 UNITS/ML VIAL SC SCH ×2 (08:55→20:52)
[2020-03-08] MEDS: Carvedilol 25 MG TAB PO SCH ×2 (08:56→20:54)
[2020-03-08] MEDS: Aspirin 81 mg Enteric Coated Tablet PO SCH (08:56)
[2020-03-08] MEDS: predniSONE 20 MG TAB PO SCH (08:56)
[2020-03-08] MEDS: Doxycycline 100 MG CAP PO SCH ×2 (08:56→20:54)
[2020-03-08] MEDS: Ascorbic Acid 500 mg Chewable Tablet PO SCH (08:56)
[2020-03-08] MEDS: Calcitriol 0.25 MCG CAP PO SCH (08:56)
[2020-03-08] MEDS: ANORO INH SCH (08:57)
[2020-03-08] MEDS: Ergocalciferol 1.25 MG(50,000 UNITS) CAP PO SCH (08:57)
[2020-03-08] MEDS: Furosemide 80 MG TAB PO SCH (08:57)
[2020-03-08] MEDS: Folic Acid/Vit B Comp W-C PO SCH (08:57)
[2020-03-08] MEDS ORDERED: Albumin 5% 0 ML ONE (11:47)
[2020-03-08] MEDS ORDERED: Albumin 25% 100 ML ONE (11:47)
--- NOTE | 2020-03-08 12:36 | PRG ---
DATE OF SERVICE: 03/08/2020 SUBJECTIVE: There has been no noticeable change in the past 24 hours. She is increasingly fatigued and complains of diffuse pain in the chest, but not in the heart. She denies any nausea or vomiting. She has been on near continuous BiPAP therapy. LABORATORY DATA: White count today 18,500, hemoglobin 13.8, platelet count 184,000. Electrolytes include sodium 147, potassium 4.6, chloride 112, CO2 is 19, BUN 100, creatinine 1.8. Her metabolic acidosis is new compared to previously and probably is a combination of renal and respiratory. IMPRESSION: 1. COVID pneumonia, requiring high support, both oxygen and BiPAP. 2. Worsening prerenal azotemia and development of metabolic acidosis. PLAN: We will continue supportive care without plans to intubate. The family is still not made a formal decision whether they wish to try inpatient hospice/palliative care versus trying to go home with hospice. Job ID: [id number]
--- NOTE | 2020-03-08 12:37 | PDOC.HOSPP ---
- Subjective Encounter Date: 03/08/20 Encounter Time: 12:35 Subjective: Ms. Machuca was seen today in follow-up of COVID infection and respiratory failure. She does not look well at all. She is so weak she can not formulate words. She only barely moves her head in response. - Objective Vital Signs & Weight: Vital Signs (12 hours) Temp Pulse Resp Pulse Ox 03/08/20 12:00 97.1 F L 03/08/20 08:45 109 H 28 H 86 L 03/08/20 08:00 97.6 F 03/08/20 04:00 97.8 F 03/08/20 03:31 87 L 03/08/20 03:23 114 H 25 H 87 L Weight Admit Weight 125 lb Weight 128 lb 1.6 oz Most Recent Monitor Data Heart Rate from ECG 105 NIBP 71/41 NIBP BP-Mean 51 Respiration from ECG 32 SpO2 86 I&O: 03/07/20 03/08/20 03/09/20 06:59 06:59 06:59 Intake Total 265 30 Output Total 1580 210 Balance -1315 -180 Result Diagrams: 03/08/20 04:01 03/08/20 04:01 Hospitalist ROS - Medication Medications: Active Medications Generic Name Dose Route Start Last Admin Trade Name Freq PRN Reason Stop Dose Admin Acetaminophen 650 mg 02/25/20 14:04 03/01/20 05:50 Tylenol PO 650 mg Q4H PRN Administration Headache/Fever/Mild Pain (1-3) Albuterol Sulfate 2 puff 02/26/20 19:00 03/08/20 06:07 Proventil Hfa INH Not Given [id number] [facility] Ascorbic Acid 1,000 mg 03/01/20 09:00 03/08/20 08:56 Vitamin C PO Not Given DAILY [facility] Aspirin 81 mg 02/26/20 09:00 03/08/20 08:56 Ecotrin PO Not Given DAILY [facility]O Calcitriol 0.25 mcg 02/26/20 09:00 03/08/20 08:56 Rocaltrol PO Not Given DAILY EDG[facility]O Carvedilol 25 mg 02/29/20 21:00 03/08/20 08:56 Coreg PO Not Given BID EDGARDO Diltiazem HCl 240 mg 02/29/20 18:00 03/07/20 17:39 Cardizem Cd PO Not Given 1800 EDGARDO Diphenoxylate HCl/Atropine 1 tab 02/27/20 10:43 02/28/20 14:34 Lomotil PO 1 tab QIDPRN PRN Administration Diarrhea/Loose Stools Doxycycline Hyclate 100 mg 03/05/20 21:00 03/08/20 08:56 Vibramycin PO 03/12/20 09:01 Not Given BID [facility] Ergocalciferol 1.25 mg 02/26/20 09:00 03/08/20 08:57 Drisdol PO Not Given DAILY [facility] Furosemide 40 mg 03/04/20 09:00 03/08/20 08:57 Lasix PO Not Given DAILY [facility] Heparin Sodium (Porcine) 5,000 units 02/25/20 21:00 03/08/20 08:55 Heparin SC 5,000 units BID [facility] Administration Levothyroxine Sodium 75 mcg 02/26/20 06:00 03/08/20 06:07 Synthroid PO Not Given 0600 [facility] Morphine Sulfate 4 mg 03/06/20 19:25 03/07/20 00:53 Morphine SLOW IVP 4 mg Q4H PRN Administration Moderate to Severe Pain (6-10) Morphine Sulfate 1 mg 03/08/20 06:10 03/08/20 06:28 Morphine Sulfate IV 1 mg Q4H PRN Administration Moderate Pain (4-6) Pantoprazole Sodium 40 mg 02/29/20 21:00 03/08/20 08:57 Protonix PO Not Given BID [facility] Anoro 62.5 Mcg/25 1 each 03/05/20 09:00 03/08/20 08:57 Mcg Inh INH Not Given DAILY [facility] Prednisone 40 mg 03/06/20 08:00 03/08/20 08:56 Prednisone PO Not Given QAM-WM [facility] Sodium Chloride 10 ml 02/25/20 21:00 03/08/20 08:58 Flush - Normal Saline IVF 10 ml Q12HR [facility] Administration Vitamin B Complex/Vit C/Folic Acid 1 tab 03/01/20 09:00 03/08/20 08:57 Nephro-John Tablet PO Not Given DAILY [facility] - Exam Eye: PERRL, anicteric sclera Heart: RRR, no murmur, no gallops, no rubs, normal peripheral pulses Respiratory: rales (+ rales bilaterally, no) Gastrointestinal: soft, non-tender, non-distended, normal bowel sounds, no palpable masses Extremities: no cyanosis Hosp A/P (1) Acute respiratory failure with hypoxemia Code(s): J96.01 - ACUTE RESPIRATORY FAILURE WITH HYPOXIA Status: Acute (2) Pneumonia due to COVID-19 virus Code(s): U07.1 - COVID-19; J12.89 - OTHER VIRAL PNEUMONIA Status: Acute (3) Atrial fibrillation Code(s): I48.91 - UNSPECIFIED ATRIAL FIBRILLATION Status: Acute (4) Hypertension Code(s): I10 - ESSENTIAL (PRIMARY) HYPERTENSION Status: Acute (5) Hypothyroidism Code(s): E03.9 - HYPOTHYROIDISM, UNSPECIFIED Status: Acute - Plan * COVID pneumonia-with respiratory failure- She is on BiPAP with 100% supplemental oxygen. Despite this she is only getting oxygen saturations in the 80- low 90's. * Hypotension- will start IV Albumin * AFIB- heart rate is variable * Hypothyroidism- stable * HTN- blood pressure is low normal * I have called and spoken to her son, Norberto Machuca over the phone and informed him of her grave condition. It is possible she may not survive the next 24 hours.
[2020-03-08] MEDS: Albumin 25% 25 GM/100 ML BOT IVPB SCH ×3 (14:34→22:50)
[2020-03-08] MEDS ORDERED: Sodium Chloride 0.45% 250 ML IV SCH (22:30)
[2020-03-09] MEDS ORDERED: Sodium Chloride 0.45% 250 ML IV SCH (03:00)
[2020-03-09 03:50] LABS: Lactic Acid 2.2 mmol/L (0.5-2.2)
[2020-03-09 03:57] LABS: Anion Gap 23 mmol/L (10-20); BUN (Urea Nitrogen) 124 mg/dL (9.8-20.1); Calc. Creatinine Clearance 14 mL/min (70-130); Calcium 8.5 mg/dL (7.8-10.44); Carbon Dioxide 18 mmol/L (23-31); Chloride 114 mmol/L (98-107); Estimated GFR-MDRD 16; Glucose 114 mg/dL (83-110); Potassium 4.2 mmol/L (3.5-5.1); Sodium 151 mmol/L (136-145)
[2020-03-09 04:08] LABS: #Lymphocytes 0.3 thou/uL (1.20-3.40); #Monocytes 0.8 thou/uL (0.11-0.59); #Neutrophils 9.2 thou/uL (1.40-6.50); %Eosinophils 0.1 % (0.0-10.0); %Lymphocytes 3.3 % (21.0-51.0); %Monocytes 7.3 % (0.0-10.0); %Neutrophils 89.3 % (42.0-75.0); Mean Corpuscular Hemoglobin 27.8 pg (27.0-31.0); Mean Corpuscular Volume 92.6 fL (78.0-98.0); Mean Platelet Volume 11.3 fL (7.4-10.4); Platelet Count 95 thou/uL (130-400); RBC Distribution Width 17.3 % (11.5-14.5); White Blood Cell (WBC) Count 10.3 thou/uL (4.8-10.8)
[2020-03-09 04:23] LABS: Platelet Morphology Comment Appears Decreased
[2020-03-09] MEDS: Albumin 25% 25 GM/100 ML BOT IVPB SCH (04:59)
[2020-03-09] MEDS: Levothyroxine Sodium 75 MCG TAB PO SCH (04:59)
[2020-03-09] MEDS: Heparin 5,000 UNITS/ML VIAL SC SCH (07:36)
[2020-03-09] MEDS: Albuterol 200 PUFF (6.7GM INHALER) INH SCH ×2 (08:23→11:08)
--- NOTE | 2020-03-09 09:51 | PDOC.HOSPP ---
- Subjective Encounter Date: 03/09/20 Encounter Time: 09:50 Subjective: Patient no longer responding to stimulation. On Bipap. SBP running in 50s this morning. Palliative care discussing with family. - Objective Vital Signs & Weight: Vital Signs (12 hours) Temp Pulse Resp Pulse Ox 03/09/20 08:22 92 L 03/09/20 08:21 121 H 35 H 92 L 03/09/20 06:20 96.5 F L 03/09/20 05:16 96.1 F L 03/09/20 04:00 96.9 F L 03/09/20 02:20 95.1 F L 03/09/20 00:57 100 20 94 L 03/09/20 00:10 93.8 F L 03/08/20 23:00 95.3 F L Weight Admit Weight 125 lb Weight 130 lb 1 oz Most Recent Monitor Data Heart Rate from ECG 105 NIBP 56/33 NIBP BP-Mean 40 Respiration from ECG 36 SpO2 90 I&O: 03/08/20 03/09/20 03/10/20 06:59 06:59 06:59 Intake Total 30 720 Output Total 210 125 Balance -180 595 Result Diagrams: 03/09/20 03:20 03/09/20 03:20 Additional Labs: Accuchecks 03/09/20 02:13 POC Glucose 126 H Hospitalist ROS - Review of Systems ROS unobtainable: due to mental status - Medication Medications: Active Medications Generic Name Dose Route Start Last Admin Trade Name Freq PRN Reason Stop Dose Admin Acetaminophen 650 mg 02/25/20 14:04 03/01/20 05:50 Tylenol PO 650 mg Q4H PRN Administration Headache/Fever/Mild Pain (1-3) Albumin Human 25 gm 03/08/20 12:00 03/09/20 04:59 Albumin 25% IVPB 03/10/20 06:01 25 gm Q6HR EDGARDO Administration Albuterol Sulfate 2 puff 02/26/20 19:00 03/09/20 08:23 Proventil Hfa INH Not Given [id number] [facility] Ascorbic Acid 1,000 mg 03/01/20 09:00 03/08/20 08:56 Vitamin C PO Not Given DAILY [facility] Aspirin 81 mg 02/26/20 09:00 03/08/20 08:56 Ecotrin PO Not Given DAILY [facility] Calcitriol 0.25 mcg 02/26/20 09:00 03/08/20 08:56 Rocaltrol PO Not Given DAILY [facility] Carvedilol 25 mg 02/29/20 21:00 03/08/20 20:54 Coreg PO Not Given BID [facility] Diltiazem HCl 240 mg 02/29/20 18:00 03/08/20 17:14 Cardizem Cd PO Not Given 1800 [facility] Diphenoxylate HCl/Atropine 1 tab 02/27/20 10:43 02/28/20 14:34 Lomotil PO 1 tab QIDPRN PRN Administration Diarrhea/Loose Stools Doxycycline Hyclate 100 mg 03/05/20 21:00 03/08/20 20:54 Vibramycin PO 03/12/20 09:01 Not Given BID [facility] Ergocalciferol 1.25 mg 02/26/20 09:00 03/08/20 08:57 Drisdol PO Not Given DAILY [facility] Furosemide 40 mg 03/04/20 09:00 03/08/20 08:57 Lasix PO Not Given DAILY [facility] Heparin Sodium (Porcine) 5,000 units 02/25/20 21:00 03/09/20 07:36 Heparin SC Not Given BID [facility] Levothyroxine Sodium 75 mcg 02/26/20 06:00 03/09/20 04:59 Synthroid PO Not Given 0600 [facility] Morphine Sulfate 4 mg 03/06/20 19:25 03/07/20 00:53 Morphine SLOW IVP 4 mg Q4H PRN Administration Moderate to Severe Pain (6-10) Morphine Sulfate 1 mg 03/08/20 06:10 03/08/20 21:21 Morphine Sulfate IV 1 mg Q4H PRN Administration Moderate Pain (4-6) Pantoprazole Sodium 40 mg 02/29/20 21:00 03/08/20 20:55 Protonix PO Not Given BID [facility] Anoro 62.5 Mcg/25 1 each 03/05/20 09:00 03/08/20 08:57 Mcg Inh INH Not Given DAILY [facility] Prednisone 40 mg 03/06/20 08:00 03/08/20 08:56 Prednisone PO Not Given QAM-WM [facility] Sodium Chloride 10 ml 02/25/20 21:00 03/08/20 20:52 Flush - Normal Saline IVF 10 ml Q12HR EDGARDO Administration Vitamin B Complex/Vit C/Folic Acid 1 tab 03/01/20 09:00 03/08/20 08:57 Nephro-John Tablet PO Not Given DAILY EDGARDO - Exam General Appearance: ill appearing Heart: RRR, no murmur, no gallops, no rubs Respiratory - other findings: coarse breath sounds, poor air movement on Bipap Gastrointestinal: soft, non-tender, non-distended, normal bowel sounds Neurological - other findings: no moving extremities to stimulation Psychiatric - other findings: unresponsive Hosp A/P (1) Acute respiratory failure with hypoxemia Code(s): J96.01 - ACUTE RESPIRATORY FAILURE WITH HYPOXIA Status: Acute (2) Pneumonia due to COVID-19 virus Code(s): U07.1 - COVID-19; J12.89 - OTHER VIRAL PNEUMONIA Status: Acute (3) Sepsis with acute respiratory failure and septic shock Code(s): A41.9 - SEPSIS, UNSPECIFIED ORGANISM; R65.21 - SEVERE SEPSIS WITH SEPTIC SHOCK; J96.00 - ACUTE RESPIRATORY FAILURE, UNSP W HYPOXIA OR HYPERCAPNIA Status: Acute (4) Atrial fibrillation Code(s): I48.91 - UNSPECIFIED ATRIAL FIBRILLATION Status: Acute (5) Hypertension Code(s): I10 - ESSENTIAL (PRIMARY) HYPERTENSION Status: Chronic (6) Hypothyroidism Code(s): E03.9 - HYPOTHYROIDISM, UNSPECIFIED Status: Chronic - Plan Consults: Palliative Care * COVID pneumonia-with respiratory failure- She is on BiPAP with 100% supplemental oxygen. Despite this she is only getting oxygen saturations in the 80- low 90's. * Hypotension- Given IV Albumin, but BP still dropped this morning to 50s systolic, has been doing this on and off all weekend. Family discussing if they want to move to hospice. If they decide not to will need to transfer to the unit for Levophed and will need CVL placed. * AFIB- heart rate is variable * Hypothyroidism- stable * Palliative Care discussing plan with family at this time.
[2020-03-09] MEDS ORDERED: Norepinephrine 8 MG/0.9% NS 250 ML IVPB SCH (10:00)
[2020-03-09 10:22] VITALS: TEMP 98.2
[2020-03-09] MEDS: predniSONE 20 MG TAB PO SCH (10:38)
[2020-03-09] MEDS: Carvedilol 25 MG TAB PO SCH (10:39)
[2020-03-09] MEDS: Folic Acid/Vit B Comp W-C PO SCH (10:39)
[2020-03-09] MEDS: Ergocalciferol 1.25 MG(50,000 UNITS) CAP PO SCH (10:39)
[2020-03-09] MEDS: Doxycycline 100 MG CAP PO SCH (10:39)
[2020-03-09] MEDS: Calcitriol 0.25 MCG CAP PO SCH (10:39)
[2020-03-09] MEDS: Aspirin 81 mg Enteric Coated Tablet PO SCH (10:39)
[2020-03-09] MEDS: Ascorbic Acid 500 mg Chewable Tablet PO SCH (10:39)
[2020-03-09] MEDS: ANORO INH SCH (10:40)
[2020-03-09] MEDS: Furosemide 80 MG TAB PO SCH (10:40)
[2020-03-09 12:13] VITALS: BMI 22.3
--- NOTE | 2020-03-10 13:22 | DIS ---
DATE OF ADMISSION: 02/25/2020 DATE OF DISCHARGE: 03/09/2020 SUMMARY: REASONS FOR ADMISSION: COVID positive with respiratory distress. CAUSE OF : 1. COVID-19 pneumonia for 16 days. 2. Atrial fibrillation. 3. Hypertension. SUMMARY OF HOSPITAL COURSE: This is an 79-year-old female, who was present in the hospital after a diagnosis at her primary care physician's office of COVID-19. She had increasing shortness of breath and so presented to the emergency room. There, she was found to be in atrial fibrillation with rapid ventricular rate. She had low blood pressure as well, she was started on Levophed as well as medications to control her heart rate. The patient was treated in conjunction with pulmonology , infectious Disease and cardiology, however, she continued to decline during her hospitalization. She and her son discussed and patient determined that she would not want to be intubated, so she was made DNR. She had continued decline, was tried on BiPAP for a while to see if this would improve her breathing. However, she continued to drop her saturations and eventually she . Time of at 1050 hours on 03/09/2020. Job ID: [id number] MTDD
== END 2020-03-09 11:00 | disposition expired | DRG 871 ==
LOC: ERS 10:52 → CCU 12:45 → 2SW 02-27 18:23 → IMCU/EMU 03-06 16:56
PROVIDERS: ADMIT Internal Medicine; ATTEND Internal Medicine
PROC: 06HY33Z Insertion of Infusion Device into Lower Vein, Percutaneous Approach (ICD-10-PCS; principal; 2020-02-25)
PROC: 3E043XZ Introduction of Vasopressor into Central Vein, Percutaneous Approach (ICD-10-PCS; 2020-02-25)
PROC: 8E0ZXY6 Isolation (ICD-10-PCS; 2020-02-25)
PROC: 5A09557 Assistance with Respiratory Ventilation, Greater than 96 Consecutive Hours, Continuous Positive Airway Pressure (ICD-10-PCS; 2020-02-25)
DX: A41.89 Other specified sepsis (principal); R65.21 Severe sepsis with septic shock; U07.1 COVID-19; L89.153 Pressure ulcer of sacral region, stage 3; J96.21 Acute and chronic respiratory failure with hypoxia; J44.0 Chronic obstructive pulmonary disease with (acute) lower respiratory infection; I13.0 Hypertensive heart and chronic kidney disease with heart failure and stage 1 through stage 4 chronic kidney disease, or unspecified chronic kidney disease; J44.1 Chronic obstructive pulmonary disease with (acute) exacerbation; N17.9 Acute kidney failure, unspecified; J84.9 Interstitial pulmonary disease, unspecified; I48.20 Chronic atrial fibrillation, unspecified; E87.2 Acidosis; Z66 Do not resuscitate; Z51.5 Encounter for palliative care; I50.9 Heart failure, unspecified; N18.9 Chronic kidney disease, unspecified; E78.5 Hyperlipidemia, unspecified; E03.9 Hypothyroidism, unspecified; E86.9 Volume depletion, unspecified; E88.09 Other disorders of plasma-protein metabolism, not elsewhere classified; J84.10 Pulmonary fibrosis, unspecified; Z79.890 Hormone replacement therapy; Z79.899 Other long term (current) drug therapy; Z87.891 Personal history of nicotine dependence
CPT/HCPCS: 36415; 36416; 36430; 36556; 51702; 71045; 80048; 80053; 80076; 81003; 82550; 82553; 82728; 82805; 83605; 83690; 83880; 84439; 84443; 84484; 85025; 85379; 86140; 86850; 86900; 86901; 87040; 87086; 93005; 94664; 94760; 96365; 96366; 96367; 96372; 96375; J0456; J0692; J0696; J1100; J1160; J1644; J1650; J1940; J2270; J2930; J3475; J3490; J7512; P9045; P9047